=== PATIENT | female | born 1960 | race Caucasian/White ===

== ENCOUNTER 2020-10-27 13:52 | Inpatient (IN) | payer MEDICARE, MEDICAID ==
[~2020-10-27 13:52] MED LIST: Iopamidol-370 76% 500 ML 1 ML ONE
--- NOTE | 2020-10-27 15:02 | RAD ---
PORTABLE CHEST: 10/27/20 HISTORY: Cough. Heart size within normal limits. There are atherosclerotic changes of the aorta. The lungs are clear of infiltrate. No significant bony findings. IMPRESSION: No active intrathoracic disease. POS: OFF
[2020-10-27] MEDS ORDERED: Albuterol 200 PUFF (6.7GM INHALER) ONE (15:14)
[2020-10-27 15:35] LABS: Bilirubin Negative (Negative); Blood, Urine Negative (Negative); Clarity Clear (Clear); Glucose, Urine (Dipstick) Normal (Negative); Ketone, Urine 10 mg/dL (Negative); Leukocyte 25 Leu/uL (Negative); Nitrite Negative (Negative); Protein, Urine (Dipstick) 10 mg/dL (Neg-Trace); RBC/HPF 0-3 HPF (0-3); Urobilinogen Normal mg/dL (Less than 2)
[2020-10-27 15:36] LABS: Bacteria/HPF 1+ HPF (None Seen)
[2020-10-27] MEDS ORDERED: methylPREDNISolone Sod Succ/PF 125 MG/2 ML VIAL ONE (15:49)
[2020-10-27] MEDS ORDERED: Ondansetron PF 4 MG/2 ML Vial ONE (15:49)
[2020-10-27 16:02] LABS: #Lymphocytes 1.6 thou/uL (1.20-3.40); #Monocytes 0.8 thou/uL (0.11-0.59); #Neutrophils 12.7 thou/uL (1.40-6.50); %Basophils 0.2 % (0.0-1.0); %Eosinophils 0.2 % (0.0-10.0); %Lymphocytes 10.8 % (21.0-51.0); %Monocytes 5.1 % (0.0-10.0); %Neutrophils 83.8 % (42.0-75.0); Hemoglobin 17.3 g/dL (12.0-16.0); Mean Corpuscular HGB CONC 34.8 g/dL (32.0-36.0); Mean Corpuscular Hemoglobin 41.7 pg (27.0-31.0); Mean Platelet Volume 6.8 fL (7.4-10.4); Platelet Count 292 thou/uL (130-400); RBC Distribution Width 15.7 % (11.5-14.5); Red Blood Cell (RBC) Count 4.15 mill/uL (4.20-5.40); White Blood Cell (WBC) Count 15.1 thou/uL (4.8-10.8)
[2020-10-27 16:15] LABS: Anisocytosis SLIGHT = 6-15 cells (100X) (0-5/hpf); MDiff Complete? YES; Macrocytosis SLIGHT = 6-15 cells (100X) (0-5/hpf); Platelet Morphology Comment Appears Adequate
[2020-10-27 16:22] LABS: ALT (SGPT) 42 U/L (8-55); AST (SGOT) 46 U/L (5-34); Albumin 3.8 g/dL (3.5-5.0); Alkaline Phosphatase 111 U/L (40-110); Anion Gap 14 mmol/L (10-20); BUN (Urea Nitrogen) 7 mg/dL (9.8-20.1); Bilirubin, Total 2.5 mg/dL (0.2-1.2); Calc. Creatinine Clearance 0 mL/min (70-130); Calcium 8.9 mg/dL (7.8-10.44); Carbon Dioxide 27 mmol/L (22-29); Chloride 88 mmol/L (98-107); Globulin 3.9 g/dL (2.4-3.5); Glucose 105 mg/dL (70-105); Lipase 12 U/L (8-78); Potassium 4.6 mmol/L (3.5-5.1); Protein, Total 7.7 g/dL (6.0-8.3); Sodium 124 mmol/L (136-145)
--- NOTE | 2020-10-27 17:04 | CT ---
CTA Angio Chest W WO Con 10/27/2020 4:42 PM Indication: Shortness of breath and elevated d-dimer Technique: Multiple CTA images were obtained of the thorax with IV contrast. 3-D rendering: MIP matthew nstructed images were created and reviewed. Comparison: No relevant prior studies available. Findings: Pulmonary arteries: No central or segmental pulmonary embolus is evident. Heart and Aorta: There are coronary artery and thoracic aortic calcifications. The heart and great v essels appear otherwise within normal limits Mediastinum:Normal appearing. No enlarged lymph nodes. Lungs:There are areas of subsegmental volume loss within the lingula, right middle lobe and right low er lobe. No confluent airspace opacity is evident. Pleural space: Clear. Upper Abdomen: There is prominent fatty infiltration of the liver with a nodular contour. Osseous Structures: No acute fracture or subluxation demonstrated. There is scattered degenerative a nd osteoarthritic change present. Soft tissues:No abnormality. Other findings:None. Impression: No central or segmental pulmonary embolus.
[2020-10-27] MEDS ORDERED: Ketorolac Tromethamine 30 MG/ML VIAL ONE (17:56)
--- NOTE | 2020-10-27 17:56 | ULT ---
RIGHT UPPER QUADRANT ULTRASOUND CLINICAL HISTORY: Right upper quadrant pain. COMPARISON: None FINDINGS: Liver:There is diffuse fatty infiltration. Image detail is limited due to overlying bowel gas and the patient's body habitus Intrahepatic bile ducts: No intrahepatic or extrahepatic biliary dilation.; Common bile duct: Not visualized Gallbladder: Normal appearing. Adames's sign:None Main portal vein:Not well seen Pancreas:Not well seen Right kidney: Right kidney measures 9.9 x 4.6 x 5.1 cm. No focal renal lesion or hydronephrosis. Additional findings: None. IMPRESSION: Some limitations in exam. Diffuse fatty liver. Visualized gallbladder appear within normal limits.
[2020-10-27 19:00] LABS: SARS-CoV-2 NAA Rapid Test Not Detected (NotDetected)
[2020-10-27] MEDS ORDERED: Acetaminophen 325 MG TAB PO PRN (21:01)
[2020-10-27] MEDS ORDERED: hydrALAZINE 20 MG/ML VIAL SLOW IVP PRN (21:01)
[2020-10-27] MEDS ORDERED: Labetalol HCl 100 MG/20 ML VIAL SLOW IVP PRN (21:01)
[2020-10-27] MEDS ORDERED: cloNIDine 0.1 MG TAB PO PRN (21:01)
[2020-10-27] MEDS ORDERED: Guaifenesin DM 100-10/5 ML UDCUP PO PRN (21:01)
[2020-10-27] MEDS ORDERED: HYDROcodone/Acetaminophen 5/325 mg Tablet PO PRN (21:01)
[2020-10-27] MEDS ORDERED: Promethazine HCl 12.5 MG in Sodium Chloride 0.9% 50 ML IVPB PRN (21:08)
[2020-10-27] MEDS ORDERED: Ondansetron PF 4 MG/2 ML Vial IVP PRN (21:08)
[2020-10-27] MEDS ORDERED: Sodium Chloride 0.9% 500 ML IV SCH (21:15)
[2020-10-27] MEDS ORDERED: Electrolyte Replacement Protocol 1 EACH FS SCH (21:15)
--- NOTE | 2020-10-27 21:17 | PDOC.HHP ---
Hospitalist HPI Shortness of breath, nausea/vomiting/diarrhea History of Present Illness: Patient is a 60 year old female with PMH HTN, COPD who presents to ED for cough. Patient reports COPD and daily cough, last 3 days was worse than usual, patient fell yesterday no LOC did not hit head. Normally uses inhaler and used twice today. She also reports vomiting and now has rib pain secondary to coughing and vomiting. She has also had a few episodes of diarrhea and decreased PO intake. Oxygen saturation per EMS prior to arrival was 93% on room air. Patient does not wear supplemental home oxygen. recieved 2 inhaled albuterol doses. in ED, CXR clear, WBC 15.1, CTA chest performed and no PE observed. Na 124, nephrology consulted from ED, recommended fluid restriction and will see patient with us in AM. Patient admitted for further workup and care. Allergies/Adverse Reactions: Allergy/AdvReac Type Severity Reaction Status Date / Time No Known Drug Allergies Allergy Unverified 10/27/20 21:23 Comments: lisinopril MonOct 27, 2020 14:07 PRABHA Diaz Madisen tablet : Strength - 40 mg : ORAL Patient Dose: 40 mg Oral once a day. metoprolol tartrate oral MonOct 27, 2020 14:07 PRABHA Diaz Madisen tablet : Strength - 25 mg : ORAL Patient Dose: 25 mg Oral once a day. PROzac MonOct 27, 2020 14:08 PRABHA Diaz Madisen capsule : Strength - 40 mg : ORAL Patient Dose: 40 mg Oral once a day. albuterol MonOct 27, 2020 14:08 PRABHA Diaz Madisen aerosol : Strength - 90 mcg : INHALATION Patient Dose: unk mg Oral 4 times a day. Breo Ellipta MonOct 27, 2020 14:09 PRABHA Diaz Madisen blister with device : Strength - 100 mcg-25 mcg/dose : INHALATION Patient Dose: unk mg Inhaler once a day. temazepam MonOct 27, 2020 14:09 PRABHA Diaz Madisen capsule : Strength - 30 mg : ORAL Patient Dose: 30 mg Oral once a day (at bedtime). Past History: PMH: COPD, HTN PSH: tubal ligation social history: uses tobacco. denies alcohol, drug use. Hospitalist HPI ROS Constitutional: denies: fever, chills, sweats, weakness, malaise, other Eyes: denies: pain, vision change, conjunctivae inflammation, eyelid inflammation, redness, other ENT: denies: ear pain, ear discharge, nose pain, nose discharge, nose congestion, mouth pain, mouth swelling, throat pain, throat swelling, other Respiratory: reports: cough, wheezing. denies: dry, shortness of breath, hemoptysis, SOB with excertion, pleuritic pain, sputum, other Cardiovascular: denies: chest pain, palpitations, orthopnea, paroxysmal noc. dyspnea, edema, light headedness, other Gastrointestinal: reports: nausea, vomiting, abdominal pain, diarrhea. denies: constipation, melena, hematochezia, other Genitourinary: denies: dysuria, frequency, incontinence, hematuria, retention, other Musculoskeletal: denies: neck pain, shoulder pain, arm pain, back pain, hand pain, leg pain, foot pain, other Skin: denies: rash, lesions, taurus, bruising, other Neurological: denies: weakness, numbness, incoordination, change in speech, confusion, seizures, other All other systems reviewed; all pertinent +/- noted in HPI/Subj Hospitalist Exam Vitals: VITAL SIGNS MonOct 27, 2020 19:00 PRABHA Guerra Brandi BP: 128/97 Pulse: 79 Resp: 22 Pain: 4 O2 sat: 97 on (2L Oxygen) Time: 10/27/2020 19:00. General Appearance: NAD, awake alert Eye: PERRL, anicteric sclera ENT: normocephalic atraumatic, no oropharyngeal lesions, moist mucosa Neck: supple, symmetric, no JVD, no thyromegaly, no lymphadenopathy, no carotid bruit Heart: RRR, no murmur, no gallops, no rubs, normal peripheral pulses Respiratory: CTAB, no wheezes, no rales, no ronchi, normal chest expansion, no tachypnea, normal percussion Gastrointestinal: soft, non-tender, non-distended, normal bowel sounds, no palpable masses, no hepatomegaly, no splenomegaly, no bruit Extremities: no cyanosis, no clubbing, no edema Skin: normal turgor, no lesions, no rashes Neurological: cranial nerve grossly intact, normal sensation to touch, no weakness, no focal deficits, no new deficit Musculoskeletal: normal tone, normal strength, no muscle wasting Psychiatric: normal affect, normal behavior, A&O x 3 Hospitalist Results Result Diagrams: 10/27/20 15:39 10/27/20 15:39 Lab results: Laboratory Last Values WBC 15.1 thou/uL (4.8-10.8) H 10/27/20 15:39 RBC 4.15 mill/uL (4.20-5.40) L 10/27/20 15:39 Hgb 17.3 g/dL (12.0-16.0) H 10/27/20 15:39 Hct 49.6 % (36.0-47.0) H 10/27/20 15:39 MCV 120.0 fL (78.0-98.0) H 10/27/20 15:39 MCH 41.7 pg (27.0-31.0) H 10/27/20 15:39 MCHC 34.8 g/dL (32.0-36.0) 10/27/20 15:39 RDW 15.7 % (11.5-14.5) H 10/27/20 15:39 Plt Count 292 thou/uL (130-400) 10/27/20 15:39 MPV 6.8 fL (7.4-10.4) L 10/27/20 15:39 Neutrophils % 83.8 % (42.0-75.0) H 10/27/20 15:39 Neutrophils % (Manual) Not Reportable 10/27/20 15:39 Lymphocytes % 10.8 % (21.0-51.0) L 10/27/20 15:39 Monocytes % 5.1 % (0.0-10.0) 10/27/20 15:39 Eosinophils % 0.2 % (0.0-10.0) 10/27/20 15:39 Basophils % 0.2 % (0.0-1.0) 10/27/20 15:39 Neutrophils # 12.7 thou/uL (1.40-6.50) H 10/27/20 15:39 Lymphocytes # 1.6 thou/uL (1.20-3.40) 10/27/20 15:39 Monocytes # 0.8 thou/uL (0.11-0.59) H 10/27/20 15:39 Eosinophils # 0.0 thou/uL (0.0-0.7) 10/27/20 15:39 Basophils # 0.0 thou/uL (0.0-0.2) 10/27/20 15:39 Plt Morphology Comment Appears Adequate 10/27/20 15:39 Anisocytosis SLIGHT = 6-15 cells (100X) (0-5/hpf) 10/27/20 15:39 Macrocytosis SLIGHT = 6-15 cells (100X) (0-5/hpf) 10/27/20 15:39 D-Dimer 0.87 *mcg/mL (0.27-0.43) H 10/27/20 15:39 Sodium 124 mmol/L (136-145) L 10/27/20 15:39 Potassium 4.6 mmol/L (3.5-5.1) 10/27/20 15:39 Chloride 88 mmol/L (98-107) L 10/27/20 15:39 Carbon Dioxide 27 mmol/L (22-29) 10/27/20 15:39 Anion Gap 14 mmol/L (10-20) 10/27/20 15:39 BUN 7 mg/dL (9.8-20.1) L 10/27/20 15:39 Creatinine 0.64 mg/dL (0.6-1.1) 10/27/20 15:39 Estimated GFR (MDRD) Greater than 90 10/27/20 15:39 Glucose 105 mg/dL (70-105) 10/27/20 15:39 Serum Osmolality 261 mOsm/kg (280-295) L 10/27/20 18:44 Calcium 8.9 mg/dL (7.8-10.44) 10/27/20 15:39 Total Bilirubin 2.5 mg/dL (0.2-1.2) H 10/27/20 15:39 AST 46 U/L (5-34) H 10/27/20 15:39 ALT 42 U/L (8-55) 10/27/20 15:39 Alkaline Phosphatase 111 U/L (40-110) H 10/27/20 15:39 Troponin I 0.010 ng/mL (< 0.028) 10/27/20 18:44 Serum Total Protein 7.7 g/dL (6.0-8.3) 10/27/20 15:39 Albumin 3.8 g/dL (3.5-5.0) 10/27/20 15:39 Globulin 3.9 g/dL (2.4-3.5) H 10/27/20 15:39 Albumin/Globulin Ratio 1.0 g/dL (1.2-2.2) L 10/27/20 15:39 Lipase 12 U/L (8-78) 10/27/20 15:39 Urine Color Light-Conger (Yellow) 10/27/20 14:48 Urine Clarity Clear (Clear) 10/27/20 14:48 Urine pH 8.0 (5.0-9.0) 10/27/20 14:48 Ur Specific [place] 1.020 (1.002-1.036) 10/27/20 14:48 Urine Protein 10 mg/dL (Neg-Trace) 10/27/20 14:48 Urine Glucose (UA) Normal mg/dL (Negative) 10/27/20 14:48 Urine Ketones 10 mg/dL (Negative) A 10/27/20 14:48 Urine Blood Negative (Negative) 10/27/20 14:48 Urine Nitrite Negative (Negative) 10/27/20 14:48 Urine Bilirubin Negative (Negative) 10/27/20 14:48 Urine Urobilinogen Normal mg/dL (Less than 2) 10/27/20 14:48 Ur Leukocyte Esterase 25 Genna/uL (Negative) A 10/27/20 14:48 Urine RBC 0-3 HPF (0-3) 10/27/20 14:48 Urine WBC 7-10 HPF (0-3) A 10/27/20 14:48 Ur Squamous Epith Cells 4-6 HPF (0-3) A 10/27/20 14:48 Urine Bacteria 1+ HPF (None Seen) A 10/27/20 14:48 Urine Osmolality 548 mOsm/kg (300-900) 10/27/20 14:48 Urine Sodium 30 mmol/L (Not Available) 10/27/20 14:48 Influenza A RNA INAAT Not Detected (NotDetected) 10/27/20 17:47 Influenza B RNA INAAT Not Detected (NotDetected) 10/27/20 17:47 SARS-CoV-2 Rap RNA(RT-PCR) Not Detected (NotDetected) 10/27/20 17:47 Additional comment: RADIOLOGY MonOct 27, 2020 15:41 Juan Hui NP, [place] XR Chest 1 View Portable Observe DT: MonOct 27, 2020 14:26 IMPRESSION: No active intrathoracic disease. EKG INTERPRETATION MonOct 27, 2020 14:18 DO [place] 12 LEAD EKG INTERPRETATION 12 lead EKG interpreted by Emergency Department Physician at time of study Normal sinus rhythm, rate 76. Normal axis and intervals. No ST or T wave changes. Normal tracing. independantly reviewed and agree with ED labs, imaging reports, ED documents reviewed Hospitalist H&P A/P Plan: Patient is a 60 year old female with PMH HTN, COPD who presents to ED for cough. # COPD exacerbation Patient reports COPD and daily cough, last 3 days was worse than usual, patient fell yesterday no LOC did not hit head. Normally uses inhaler and used twice today. She also reports vomiting and now has rib pain secondary to coughing and vomiting. She has also had a few episodes of diarrhea and decreased PO intake. Oxygen saturation per EMS prior to arrival was 93% on room air. Patient does not wear supplemental home oxygen. recieved 2 inhaled albuterol doses. in ED, CXR clear, WBC 15.1, CTA chest performed and no PE observed. Na 124, nephrology consulted from ED, recommended fluid restriction and will see patient with us in AM. Patient admitted for further workup and care. - empiric steroids, neb treatments, IV steroids started, antibiotics, dulera, vresume home medications once med rec complete # nausea, vomiting, diarrhea - suspect viral gastroenteritis, hopefully self limited # hyponatremia - nephrology consulted by ED, appreciate assistance, SIADH workup sent by Ed as nephrology recommended, 800cc fluid restriction # leukocytosis - suspect due to COPD exacerbation, treat as above # UTI - ceftriaxone, urine culture # leukocytosis - suspect due to infection, treat as above # fall - PT/OT consult ordered, no head trauma or LOC # DVT/GI ppx
[2020-10-27 22:19] LABS: Troponin I 0.015 ng/mL (< 0.028)
[2020-10-28] MEDS: Melatonin 3 MG TAB PO PRN (01:13)
[2020-10-28] MEDS ORDERED: Temazepam 15 MG CAP PO PRN (01:27)
[2020-10-28] MEDS: Azithromycin 500 MG in Sodium Chloride 0.9% 250 ML 250 ML IVPB SCH ×2 (02:06→21:31)
[2020-10-28] MEDS ORDERED: Azithromycin 500 MG VIAL ONE (02:06)
[2020-10-28 04:21] VITALS: BMI 36.7
[2020-10-28 05:08] LABS: #Lymphocytes 0.7 thou/uL (1.20-3.40); #Monocytes 0.2 thou/uL (0.11-0.59); #Neutrophils 9.5 thou/uL (1.40-6.50); %Eosinophils 0.1 % (0.0-10.0); %Lymphocytes 6.7 % (21.0-51.0); %Monocytes 1.7 % (0.0-10.0); %Neutrophils 91.5 % (42.0-75.0); Hemoglobin 15.5 g/dL (12.0-16.0); Mean Corpuscular HGB CONC 34.7 g/dL (32.0-36.0); Platelet Count 250 thou/uL (130-400); RBC Distribution Width 15.2 % (11.5-14.5); Red Blood Cell (RBC) Count 3.77 mill/uL (4.20-5.40); White Blood Cell (WBC) Count 10.4 thou/uL (4.8-10.8)
[2020-10-28 05:10] LABS: Anion Gap 14 mmol/L (10-20); BUN (Urea Nitrogen) 11 mg/dL (9.8-20.1); Calc. Creatinine Clearance 147 mL/min (70-130); Calcium 8.2 mg/dL (7.8-10.44); Carbon Dioxide 23 mmol/L (22-29); Chloride 91 mmol/L (98-107); Glucose 155 mg/dL (70-105); Magnesium 1.6 mg/dL (1.6-2.6); Potassium 4.8 mmol/L (3.5-5.1); Sodium 123 mmol/L (136-145)
[2020-10-28] MEDS ORDERED: Mometasone 100 MCG/Formoterol 5 MCG 120 PUFF INHALER INH SCH (06:30)
[2020-10-28] MEDS ORDERED: Magnesium 2 GM/50 ML 2 GM in Premix Bag 1 BAG IVPB SCH (06:30)
[2020-10-28] MEDS: methylPREDNISolone Sod Succ 40 MG VIAL IVP SCH ×2 (06:37→13:36)
[2020-10-28] MEDS ORDERED: Non-Formulary Item 1 EACH (Ventolin Hfa Inhaler [Ventolin Hfa Inhaler] 60 PUFF Aer) INH PRN (07:44)
[2020-10-28] MEDS ORDERED: Non-Formulary Item 1 EACH (Temazepam [Temazepam] 30 MG Capsule) PO PRN (07:44)
--- NOTE | 2020-10-28 08:03 | PDOC.HOSPP ---
- Subjective Encounter Date: 10/28/20 Encounter Time: 08:01 Subjective: admitted with cough, sob. RA O2 sat> 95 in ED - Objective Vital Signs & Weight: Vital Signs (12 hours) Temp Pulse Resp BP Pulse Ox 10/28/20 07:24 81 12 10/28/20 04:05 97.9 F 79 20 153/80 H 98 10/28/20 02:03 98.4 F 82 18 156/87 H 94 L 10/27/20 21:01 98.4 F 81 21 H 141/63 H 99 Weight Weight 213 lb 13.574 oz Result Diagrams: 10/28/20 04:34 10/28/20 04:34 Hospitalist ROS - Medication Medications: Active Medications Generic Name Dose Route Start Last Admin Trade Name Freq PRN Reason Stop Dose Admin Albuterol/Ipratropium 3 ml 10/28/20 07:00 10/28/20 07:24 Ipratropium/Albuterol Sulfate 3 Ml Neb NEB 3 ml [id number] DEION Administration Azithromycin 500 mg/ Sodium 250 mls @ 250 mls/hr 10/27/20 21:30 10/28/20 02:06 Chloride IVPB 250 mls Q24HR DEION Administration Magnesium Sulfate 2 gm/ Device 50 mls @ 50 mls/hr 10/28/20 06:30 10/28/20 06:37 IVPB 10/28/20 10:00 50 mls NOW DEION Administration Melatonin 6 mg 10/27/20 22:59 10/28/20 01:13 Melatonin 3 Mg Tab PO 6 mg HS PRN Administration Insomnia Methylprednisolone Sodium Succinate 60 mg 10/28/20 06:00 10/28/20 06:37 Methylprednisolone Sod Succ 40 Mg Vial IVP 60 mg Q8HR DEION Administration Mometasone Furoate/Formoterol Fumar 1 puff 10/28/20 06:30 10/28/20 07:18 Mometasone 100 Mcg/Formoterol 5 Mcg 120 Puff Inhaler INH 1 puff BID-RT DEION Administration Temazepam 30 mg 10/28/20 01:27 10/28/20 03:17 Temazepam 15 Mg Cap PO 30 mg HSPRN PRN Administration Insomnia Hospitalist Exam Vitals: Vital Signs (12 hours) Temp Pulse Resp BP Pulse Ox 10/28/20 07:24 81 12 10/28/20 04:05 97.9 F 79 20 153/80 H 98 10/28/20 02:03 98.4 F 82 18 156/87 H 94 L 10/27/20 21:01 98.4 F 81 21 H 141/63 H 99 Weight Weight 213 lb 13.574 oz General Appearance: awake alert Neck: no JVD Heart: RRR, no murmur Respiratory: CTAB Gastrointestinal: soft, normal bowel sounds Extremities: no edema Hosp A/P (1) COPD (chronic obstructive pulmonary disease) Status: Acute (2) Hyponatremia Code(s): E87.1 - HYPO-OSMOLALITY AND HYPONATREMIA Status: Acute (3) PTSD (post-traumatic stress disorder) Code(s): F43.10 - POST-TRAUMATIC STRESS DISORDER, UNSPECIFIED Status: Acute (4) Nausea & vomiting Code(s): R11.2 - NAUSEA WITH VOMITING, UNSPECIFIED Status: Acute Qualifiers: Vomiting Intractability: unspecified (5) Pyuria Code(s): R82.81 - PYURIA Status: Acute - Plan DC O2, monitor sats suspect hyponatremia due to prozac, urine lytes, osmolality pending monitor cultures etc
[2020-10-28] MEDS: Famotidine 20 MG TAB PO SCH ×2 (08:25→20:34)
[2020-10-28] MEDS: Polyethylene Glycol 3350 17 GM Packet PO SCH (08:31)
[2020-10-28] MEDS ORDERED: Albuterol 200 PUFF (6.7GM INHALER) INH PRN (08:54)
[2020-10-28] MEDS ORDERED: FLUoxetine HCl 20 MG CAP PO SCH (09:00)
[2020-10-28] MEDS ORDERED: Non-Formulary Item 1 EACH (Lisinopril [Lisinopril] 40 MG Tablet) PO SCH (09:00)
[2020-10-28] MEDS ORDERED: Non-Formulary Item 1 EACH (Fluoxetine Hcl [Prozac] 40 MG Capsule) PO SCH (09:00)
[2020-10-28] MEDS ORDERED: Non-Formulary Item 1 EACH (Fluticasone/Vilanterol [Breo Ellipta 200-25 Mcg Inh] 1 EACH Bl IH SCH (09:00)
--- NOTE | 2020-10-28 10:26 | CON ---
DATE OF CONSULTATION: Nephrology consult. REASON FOR CONSULTATION: Hyponatremia. HISTORY OF PRESENTING ILLNESS: This is a 60-year-old female who presented to the hospital yesterday for nausea, vomiting, or diarrhea. The patient was noted to have a sodium of 124, so I was consulted. The patient had a high urine osmolality and a low serum osmolality. The patient denies drinking excessively, but is on Prozac. PAST MEDICAL HISTORY: Significant for hypertension, COPD, depression, tubal ligation. SOCIOECONOMIC HISTORY: No alcohol or drug use. FAMILY HISTORY: Negative for ESRD. ALLERGIES: REVIEWED. MEDICATIONS: Home medications list reviewed. Hospital medications reviewed. REVIEW OF SYSTEMS: A 15-point review of system was performed and negative except for positives noted above. HEENT: Eyes intact, no diplopia. Ears: No hearing loss or earache. Nose: No discharge or bleeding. Chest: No cough or phlegm. Abdomen: No nausea or vomiting. Genitourinary: No hematuria. No Fletcher catheter. Musculoskeletal: No low back pain. No joint swelling or pain. Neurological: No syncope. No seizures. Skin: No complaints of rash or itching. Psychiatric: No depression. Constitutional: No weight loss or loss of appetite. PHYSICAL EXAMINATION: GENERAL: The patient is awake, alert. VITAL SIGNS: Pulse 79, breathing 16, blood pressure 141/60. HEENT: Head normocephalic and atraumatic. Eyes intact, no ulcers. Nose intact, no ulcers. Ears intact, no ulcers. Neck: Supple. No JVD. Chest: Symmetrical and clear. Cardiovascular: Shows S1 and S2, no rub, no murmur. Gastrointestinal: Abdomen is soft, bowel sounds positive. Extremities: Show no edema or ulcers. Skin: Shows no rash or petechiae. Musculoskeletal: Shows no joint swelling or stiffness. Genitourinary: Shows no Fletcher or CVA tenderness. Neurologic: Motor intact. Cranial nerves intact. LABORATORY DATA: Show sodium 123. ASSESSMENT/RECOMMENDATION: 1. 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 Medication, recommend 800 mL fluid restriction. Agree with Dr. Mancera on stopping Prozac and changing to . 2. Hypertension, stable. 3. Chronic kidney disease, stage 1, stable. 4. No indication for hypertonic saline. 5. We would recommend checking sodium 3-4 times daily. All the above findings were discussed with the patient. All questions were answered. Job ID: [id number]
[2020-10-28 10:57] LABS: Potassium, Urine 77.7 mmol/L; Sodium, Urine Less than 20 mmol/L (Not Available)
[2020-10-28 11:01] LABS: Cocaine Metabolite Screen Not Detected (NotDetected); Medtox Reader # READER 4; Phencyclidine (PCP) Not Detected (NotDetected); THC/Cannabinoid Screen Not Detected (NotDetected)
[2020-10-28 11:02] LABS: Amphetamine Not Detected (NotDetected); Barbiturates Screen Not Detected (NotDetected); Benzodiazepine Screen Detected (NotDetected); Medtox Control Line Valid? VALID (VALID); Methadone Not Detected (NotDetected); Methamphetamine Not Detected (NotDetected); Opiate Screen Not Detected (NotDetected); Oxycodone Screen Not Detected (NotDetected); Tricyclic Screen Not Detected (NotDetected)
[2020-10-28 11:50] LABS: Anion Gap 14 mmol/L (10-20); BUN (Urea Nitrogen) 10 mg/dL (9.8-20.1); Calc. Creatinine Clearance 147 mL/min (70-130); Calcium 8.2 mg/dL (7.8-10.44); Carbon Dioxide 20 mmol/L (22-29); Chloride 92 mmol/L (98-107); Glucose 232 mg/dL (70-105); Potassium 4.4 mmol/L (3.5-5.1); Sodium 122 mmol/L (136-145)
[2020-10-28] MEDS: Lisinopril 20 MG TAB PO SCH (12:56)
[2020-10-28] MEDS: Mometasone 100 MCG/Formoterol 5 MCG 120 PUFF INHALER INH SCH (18:44)
[2020-10-28 20:05] LABS: Anion Gap 17 mmol/L (10-20); BUN (Urea Nitrogen) 11 mg/dL (9.8-20.1); Calc. Creatinine Clearance 124 mL/min (70-130); Calcium 8.4 mg/dL (7.8-10.44); Carbon Dioxide 22 mmol/L (22-29); Chloride 94 mmol/L (98-107); Glucose 235 mg/dL (70-105); Potassium 4.8 mmol/L (3.5-5.1); Sodium 128 mmol/L (136-145)
[2020-10-28] MEDS: Enoxaparin Sodium 40 MG/0.4 ML SYRINGE SC SCH (20:34)
[2020-10-28] MEDS ORDERED: cefTRIAXone\\ROCEPHIN 1 GM in Sodium Chloride 0.9% 100 ML IVPB SCH (21:00)
[2020-10-29 00:13] LABS: Anion Gap 11 mmol/L (10-20); BUN (Urea Nitrogen) 14 mg/dL (9.8-20.1); Calc. Creatinine Clearance 138 mL/min (70-130); Carbon Dioxide 26 mmol/L (22-29); Chloride 96 mmol/L (98-107); Glucose 152 mg/dL (70-105); Potassium 4.6 mmol/L (3.5-5.1); Sodium 128 mmol/L (136-145)
[2020-10-29] MEDS ORDERED: ALPRAZolam 0.25 MG TAB PO SCH (02:30)
[2020-10-29 02:56] LABS: Hemoglobin 16.9 g/dL (12.0-16.0); Mean Corpuscular Hemoglobin 40.3 pg (27.0-31.0); Mean Platelet Volume 6.9 fL (7.4-10.4); Platelet Count 311 thou/uL (130-400); RBC Distribution Width 15.4 % (11.5-14.5); Red Blood Cell (RBC) Count 4.19 mill/uL (4.20-5.40); White Blood Cell (WBC) Count 18.1 thou/uL (4.8-10.8)
[2020-10-29 03:00] LABS: ALT (SGPT) 33 U/L (8-55); AST (SGOT) 27 U/L (5-34); Albumin 3.6 g/dL (3.5-5.0); Alkaline Phosphatase 109 U/L (40-110); Anion Gap 14 mmol/L (10-20); BUN (Urea Nitrogen) 12 mg/dL (9.8-20.1); Calc. Creatinine Clearance 136 mL/min (70-130); Calcium 8.7 mg/dL (7.8-10.44); Carbon Dioxide 25 mmol/L (22-29); Chloride 96 mmol/L (98-107); Globulin 3.7 g/dL (2.4-3.5); Glucose 136 mg/dL (70-105); Magnesium 2.1 mg/dL (1.6-2.6); Potassium 4.8 mmol/L (3.5-5.1); Protein, Total 7.3 g/dL (6.0-8.3); Sodium 130 mmol/L (136-145)
[2020-10-29 03:19] LABS: Band 2 % (5-11); Lymphocytes 2 % (21-51); MDiff Complete? YES; Macrocytosis SLIGHT = 6-15 cells (100X) (0-5/hpf); Monocytes 23 % (0-10); Neutrophil 73 % (42-75); Platelet Morphology Comment Appears Adequate
[2020-10-29] MEDS: Famotidine 20 MG TAB PO SCH ×2 (07:33→19:58)
[2020-10-29] MEDS: ALPRAZolam 0.25 MG TAB PO PRN ×2 (07:33→19:58)
[2020-10-29] MEDS: Polyethylene Glycol 3350 17 GM Packet PO SCH (07:35)
[2020-10-29] MEDS: Lisinopril 20 MG TAB PO SCH (07:35)
[2020-10-29] MEDS: Mometasone 100 MCG/Formoterol 5 MCG 120 PUFF INHALER INH SCH ×2 (08:17→20:52)
[2020-10-29 08:59] LABS: Anion Gap 15 mmol/L (10-20); BUN (Urea Nitrogen) 12 mg/dL (9.8-20.1); Calc. Creatinine Clearance 147 mL/min (70-130); Calcium 8.4 mg/dL (7.8-10.44); Carbon Dioxide 19 mmol/L (22-29); Chloride 100 mmol/L (98-107); Glucose 129 mg/dL (70-105); Potassium 4.4 mmol/L (3.5-5.1); Sodium 130 mmol/L (136-145)
--- NOTE | 2020-10-29 11:50 | PRG ---
DATE OF SERVICE: 10/29/2020 SUBJECTIVE: A 60-year-old female being seen for hyponatremia. The patient denied nausea, vomiting, or chest pain. PHYSICAL EXAMINATION: General: The patient is awake and alert. Vital Signs: Afebrile, pulse 75, breathing at 16, blood pressure 136/88. HEENT: Head normocephalic and atraumatic. Eyes intact, no ulcers. Nose intact, no ulcers. Ears intact, no ulcers. Neck: Supple. No JVD. Chest: Symmetrical and clear. Cardiovascular: Shows S1 and S2, no rub, no murmur. Gastrointestinal: Abdomen is soft, bowel sounds positive. Extremities: Show no edema or ulcers. Skin: Shows no rash or petechiae. Musculoskeletal: Shows no joint swelling or stiffness. Genitourinary: Shows no Fletcher or CVA tenderness. Neurologic: Motor intact. Cranial nerves intact. LABORATORY DATA: Reviewed. Sodium 130. ASSESSMENT AND PLAN: Hyponatremia, resolved fluid restriction. Advised the patient to not drink more than two quarts per day. The patient should follow up with Nephrology as outpatient. I will sign off. Please reconsult as needed. Job ID: [id number]
--- NOTE | 2020-10-29 12:08 | PDOC.HOSPP ---
- Subjective Encounter Date: 10/29/20 Encounter Time: 12:07 Subjective: had panic atacck last nite - Objective Vital Signs & Weight: Vital Signs (12 hours) Temp Pulse Resp BP BP BP Pulse Ox 10/29/20 08:15 76 15 10/29/20 08:00 97.9 F 80 18 136/88 93 L 10/29/20 07:39 98.1 F 83 18 135/88 93 L 10/29/20 07:35 135/88 10/29/20 05:22 98.1 F 84 18 116/80 96 10/29/20 02:10 108 H 163/117 H 97 10/29/20 02:05 97.7 F 97 24 H 158/110 H 96 Weight Admit Weight 213 lb 13.574 oz Weight 213 lb 13.574 oz I&O: 10/28/20 10/29/20 10/30/20 06:59 06:59 06:59 Intake Total 1330 Output Total 401 Balance 929 Result Diagrams: 10/29/20 02:27 10/29/20 06:02 Hospitalist ROS - Medication Medications: Active Medications Generic Name Dose Route Start Last Admin Trade Name Freq PRN Reason Stop Dose Admin Acetaminophen 650 mg 10/27/20 21:01 10/28/20 19:03 Acetaminophen 325 Mg Tab PO 650 mg Q4H PRN Administration Headache/Fever/Mild Pain (1-3) Albuterol/Ipratropium 3 ml 10/28/20 07:00 10/29/20 08:15 Ipratropium/Albuterol Sulfate 3 Ml Neb NEB 3 ml [id number] [id number] Administration Alprazolam 0.25 mg 10/29/20 02:39 10/29/20 07:33 Alprazolam 0.25 Mg Tab PO 0.25 mg TIDPRN PRN Administration Anxiety Enoxaparin Sodium 40 mg 10/28/20 21:00 10/28/20 20:34 Enoxaparin Sodium 40 Mg/0.4 Ml Syringe SC 40 mg 2100 DEION Administration Famotidine 20 mg 10/28/20 09:00 10/29/20 07:33 Famotidine 20 Mg Tab PO 20 mg BID DEION Administration Promethazine HCl 12.5 mg/ 50.5 mls @ 202 mls/hr 10/27/20 21:08 10/28/20 16:06 Sodium Chloride IVPB 50.5 mls Q6H PRN Administration Nausea/vomiting use second Lisinopril 40 mg 10/28/20 09:00 10/29/20 07:35 Lisinopril 20 Mg Tab PO 40 mg DAILY DEION Administration Melatonin 6 mg 10/27/20 22:59 10/28/20 01:13 Melatonin 3 Mg Tab PO 6 mg HS PRN Administration Insomnia Metoprolol Succinate 25 mg 10/28/20 09:00 10/29/20 07:35 Metoprolol Succinate Xl 25 Mg Tab PO 25 mg DAILY DEION Administration Mometasone Furoate/Formoterol Fumar 1 puff 10/28/20 18:30 10/29/20 08:17 Mometasone 100 Mcg/Formoterol 5 Mcg 120 Puff Inhaler INH 1 puff BID-RT DEION Administration Ondansetron HCl 4 mg 10/27/20 21:08 10/28/20 12:42 Ondansetron Pf 4 Mg/2 Ml Vial IVP 4 mg Q6H PRN Administration Nausea/Vomiting use 1st Polyethylene Glycol 17 gm 10/28/20 09:00 10/29/20 07:35 Polyethylene Glycol 3350 17 Gm Packet PO Not Given DAILY DEION Sodium Chloride 10 ml 10/28/20 09:00 10/29/20 07:36 Flush - Normal Saline 10 Ml Syringe IVF 10 ml Q12HR DEION Administration Hospitalist Exam Vitals: Vital Signs (12 hours) Temp Pulse Resp BP BP BP Pulse Ox 10/29/20 08:15 76 15 10/29/20 08:00 97.9 F 80 18 136/88 93 L 10/29/20 07:39 98.1 F 83 18 135/88 93 L 10/29/20 07:35 135/88 10/29/20 05:22 98.1 F 84 18 116/80 96 10/29/20 02:10 108 H 163/117 H 97 10/29/20 02:05 97.7 F 97 24 H 158/110 H 96 Weight Admit Weight 213 lb 13.574 oz Weight 213 lb 13.574 oz General Appearance: awake alert Neck: no JVD Heart: RRR, no murmur Respiratory - other findings: scattered post rales Extremities: no edema Hosp A/P (1) COPD (chronic obstructive pulmonary disease) Status: Acute Qualifiers: Emphysema type: unspecified (2) Hyponatremia Code(s): E87.1 - HYPO-OSMOLALITY AND HYPONATREMIA Status: Acute (3) PTSD (post-traumatic stress disorder) Code(s): F43.10 - POST-TRAUMATIC STRESS DISORDER, UNSPECIFIED Status: Acute (4) Nausea & vomiting Code(s): R11.2 - NAUSEA WITH VOMITING, UNSPECIFIED Status: Resolved Qualifiers: Vomiting Intractability: unspecified (5) Pyuria Code(s): R82.81 - PYURIA Status: Acute (6) UTI (urinary tract infection) Status: Acute Qualifiers: Urinary tract infection type: acute cystitis Hematuria presence: without hematuria Qualified Code(s): N30.00 - Acute cystitis without hematuria (7) Leukocytosis Code(s): D72.829 - ELEVATED WHITE BLOOD CELL COUNT, UNSPECIFIED Status: Acute Qualifiers: Leukocytosis type: unspecified Qualified Code(s): D72.829 - Elevated white blood cell count, unspecified (8) Hypotension Status: Acute Qualifiers: Hypotension type: unspecified hypotension type Qualified Code(s): I95.9 - Hypotension, unspecified - Plan hypotension-asymptomatic. bolus NS leukocytosis-blood C&S, RPT cxr suspect hyponatremia due to prozac, urine lytes, osmolality pending monitor cultures. urine C&S E coli etc
[2020-10-29] MEDS ORDERED: Sodium Chloride 0.9% 1,000 ML IV SCH (12:15)
--- NOTE | 2020-10-29 13:41 | PDOC.HOSPP ---
- Subjective Encounter Date: 10/29/20 Encounter Time: 13:37 Subjective: lightheaded, - Objective Vital Signs & Weight: Vital Signs (12 hours) Temp Pulse Resp BP BP BP Pulse Ox 10/29/20 12:00 98.0 F 76 20 94 L 10/29/20 08:15 76 15 10/29/20 08:00 97.9 F 80 18 136/88 93 L 10/29/20 07:39 98.1 F 83 18 135/88 93 L 10/29/20 07:35 135/88 10/29/20 05:22 98.1 F 84 18 116/80 96 10/29/20 02:10 108 H 163/117 H 97 10/29/20 02:05 97.7 F 97 24 H 158/110 H 96 Weight Admit Weight 213 lb 13.574 oz Weight 213 lb 13.574 oz I&O: 10/28/20 10/29/20 10/30/20 06:59 06:59 06:59 Intake Total 1330 Output Total 401 Balance 929 Result Diagrams: 10/29/20 02:27 10/29/20 06:02 Hospitalist ROS - Medication Medications: Active Medications Generic Name Dose Route Start Last Admin Trade Name Freq PRN Reason Stop Dose Admin Acetaminophen 650 mg 10/27/20 21:01 10/28/20 19:03 Acetaminophen 325 Mg Tab PO 650 mg Q4H PRN Administration Headache/Fever/Mild Pain (1-3) Albuterol/Ipratropium 3 ml 10/28/20 07:00 10/29/20 08:15 Ipratropium/Albuterol Sulfate 3 Ml Neb NEB 3 ml [id number] DEION Administration Alprazolam 0.25 mg 10/29/20 02:39 10/29/20 07:33 Alprazolam 0.25 Mg Tab PO 0.25 mg TIDPRN PRN Administration Anxiety Enoxaparin Sodium 40 mg 10/28/20 21:00 10/28/20 20:34 Enoxaparin Sodium 40 Mg/0.4 Ml Syringe SC 40 mg 2100 DEION Administration Famotidine 20 mg 10/28/20 09:00 10/29/20 07:33 Famotidine 20 Mg Tab PO 20 mg BID DEION Administration Promethazine HCl 12.5 mg/ 50.5 mls @ 202 mls/hr 10/27/20 21:08 10/28/20 16:06 Sodium Chloride IVPB 50.5 mls Q6H PRN Administration Nausea/vomiting use second Lisinopril 40 mg 10/28/20 09:00 10/29/20 07:35 Lisinopril 20 Mg Tab PO 40 mg DAILY DEION Administration Melatonin 6 mg 10/27/20 22:59 10/28/20 01:13 Melatonin 3 Mg Tab PO 6 mg HS PRN Administration Insomnia Metoprolol Succinate 25 mg 10/28/20 09:00 10/29/20 07:35 Metoprolol Succinate Xl 25 Mg Tab PO 25 mg DAILY DEION Administration Mometasone Furoate/Formoterol Fumar 1 puff 10/28/20 18:30 10/29/20 08:17 Mometasone 100 Mcg/Formoterol 5 Mcg 120 Puff Inhaler INH 1 puff BID-RT DEION Administration Ondansetron HCl 4 mg 10/27/20 21:08 10/28/20 12:42 Ondansetron Pf 4 Mg/2 Ml Vial IVP 4 mg Q6H PRN Administration Nausea/Vomiting use 1st Polyethylene Glycol 17 gm 10/28/20 09:00 10/29/20 07:35 Polyethylene Glycol 3350 17 Gm Packet PO Not Given DAILY [facility] Sodium Chloride 10 ml 10/28/20 09:00 10/29/20 07:36 Flush - Normal Saline 10 Ml Syringe IVF 10 ml Q12HR DEION Administration Hospitalist Exam Vitals: Vital Signs (12 hours) Temp Pulse Resp BP BP BP Pulse Ox 10/29/20 12:00 98.0 F 76 20 94 L 10/29/20 08:15 76 15 10/29/20 08:00 97.9 F 80 18 136/88 93 L 10/29/20 07:39 98.1 F 83 18 135/88 93 L 10/29/20 07:35 135/88 10/29/20 05:22 98.1 F 84 18 116/80 96 10/29/20 02:10 108 H 163/117 H 97 10/29/20 02:05 97.7 F 97 24 H 158/110 H 96 Weight Admit Weight 213 lb 13.574 oz Weight 213 lb 13.574 oz General Appearance: awake alert Neck: no JVD Heart: RRR, no murmur Respiratory: no wheezes, no ronchi, normal chest expansion Gastrointestinal: soft, non-distended, normal bowel sounds Extremities: no edema Hosp A/P (1) Septic shock Code(s): A41.9 - SEPSIS, UNSPECIFIED ORGANISM; R65.21 - SEVERE SEPSIS WITH SEPTIC SHOCK Status: Acute (2) COPD (chronic obstructive pulmonary disease) Status: Acute Qualifiers: Emphysema type: unspecified (3) Hyponatremia Code(s): E87.1 - HYPO-OSMOLALITY AND HYPONATREMIA Status: Acute (4) PTSD (post-traumatic stress disorder) Code(s): F43.10 - POST-TRAUMATIC STRESS DISORDER, UNSPECIFIED Status: Acute (5) Nausea & vomiting Code(s): R11.2 - NAUSEA WITH VOMITING, UNSPECIFIED Status: Resolved Qualifiers: Vomiting Intractability: unspecified (6) Pyuria Code(s): R82.81 - PYURIA Status: Acute (7) UTI (urinary tract infection) Status: Acute Qualifiers: Urinary tract infection type: acute cystitis Hematuria presence: without hematuria Qualified Code(s): N30.00 - Acute cystitis without hematuria (8) Leukocytosis Code(s): D72.829 - ELEVATED WHITE BLOOD CELL COUNT, UNSPECIFIED Status: Acute Qualifiers: Leukocytosis type: unspecified Qualified Code(s): D72.829 - Elevated white blood cell count, unspecified (9) Hypotension Status: Acute Qualifiers: Hypotension type: unspecified hypotension type Qualified Code(s): I95.9 - Hypotension, unspecified - Plan valentino CCU pressors rocephin 2 gms iv daily ( based on urine C&S) lab including lactate fitness attendant consult 30 minutes critical care
[2020-10-29] MEDS ORDERED: Norepinephrine 8 MG/0.9% NS 250 ML IVPB SCH (13:45)
[2020-10-29] MEDS ORDERED: methylPREDNISolone Sod Succ/PF 125 MG/2 ML VIAL IVP SCH (14:00)
[2020-10-29] MEDS: cefTRIAXone\\ROCEPHIN 2 GM in Sodium Chloride 0.9% 100 ML IVPB SCH (14:46)
[2020-10-29] MEDS: Sodium Chloride 0.9% 1,000 ML IV SCH ×3 (14:46→22:48)
--- NOTE | 2020-10-29 15:01 | RAD ---
Portable frontal chest radiograph: 10/29/2020 COMPARISON: 10/27/2020 HISTORY: Sepsis FINDINGS: No pneumothorax or pleural fluid. No focal consolidation or alveolar edema. Heart and media stinal contours appear grossly unremarkable. Impression: Stable appearance of the chest. No focal consolidation or alveolar edema.
[2020-10-29 15:39] LABS: ALT (SGPT) 29 U/L (8-55); AST (SGOT) 41 U/L (5-34); Albumin 2.9 g/dL (3.5-5.0); Alkaline Phosphatase 77 U/L (40-110); Anion Gap 14 mmol/L (10-20); BUN (Urea Nitrogen) 13 mg/dL (9.8-20.1); Bilirubin, Total 0.6 mg/dL (0.2-1.2); Calc. Creatinine Clearance 147 mL/min (70-130); Calcium 7.6 mg/dL (7.8-10.44); Carbon Dioxide 23 mmol/L (22-29); Chloride 100 mmol/L (98-107); Globulin 2.9 g/dL (2.4-3.5); Glucose 83 mg/dL (70-105); Protein, Total 5.8 g/dL (6.0-8.3); Sodium 132 mmol/L (136-145)
[2020-10-29 16:35] LABS: #Basophils 0.1 thou/uL (0.0-0.2); #Monocytes 0.4 thou/uL (0.11-0.59); #Neutrophils 9.5 thou/uL (1.40-6.50); %Basophils 0.6 % (0.0-1.0); %Eosinophils 0.3 % (0.0-10.0); %Lymphocytes 9.2 % (21.0-51.0); %Monocytes 3.9 % (0.0-10.0); Hemoglobin 14.9 g/dL (12.0-16.0); Mean Corpuscular HGB CONC 34.2 g/dL (32.0-36.0); Mean Corpuscular Hemoglobin 41.3 pg (27.0-31.0); Platelet Count 236 thou/uL (130-400); RBC Distribution Width 15.3 % (11.5-14.5); White Blood Cell (WBC) Count 11.1 thou/uL (4.8-10.8)
[2020-10-29] MEDS: Enoxaparin Sodium 40 MG/0.4 ML SYRINGE SC SCH (19:58)
[2020-10-29] MEDS ORDERED: Cefdinir 300 MG CAP PO SCH (21:00)
--- NOTE | 2020-10-29 21:03 | EKG ---
Test Reason : TACHYCARDIA Blood Pressure : / mmHG Vent. Rate : 091 BPM Atrial Rate : 091 BPM P-R Int : 132 ms QRS Dur : 066 ms QT Int : 372 ms P-R-T Axes : -05 -04 004 degrees QTc Int : 457 ms Normal sinus rhythm Normal ECG When compared with ECG of 27-OCT-2020 14:09, (Unconfirmed) Questionable change in QRS axis Nonspecific T wave abnormality now evident in Inferior leads Confirmed by Adonis DE LA ROSA ([id number]) on 10/29/2020 9:02:44 PM Referred By: MADELINE Confirmed By:Adonis DE LA ROSA
--- NOTE | 2020-10-29 21:06 | CON ---
DATE OF CONSULTATION: 10/29/2020 75 minutes time. REASON FOR CONSULTATION: The patient has low blood pressure. HISTORY OF PRESENT ILLNESS: Ms. Nathan is a 60-year-old who was admitted to this facility on 10/27 by the hospitalist team. At that time, her principal complaint was shortness of breath, nausea, vomiting, and diarrhea. She also had fallen at home prior to presenting in the hospital. She had a workup in the ER and was found to have a urinary tract infection and was started on antibiotics. She had a CT pulmonary angiogram which was negative. The patient was started on antibiotics and fluids and got better. Her home antihypertensive had been held until this morning and she got those earlier today. Looking at her blood pressure trend for today, she had generally been extremely high with a blood pressure at 7 a.m. of 135/88 last night, ranging up to 163/117. She received her lisinopril, metoprolol, and clonidine this morning and now is running 93/65. I think at one point she was running even lower than that. Despite that, she has not had altered mentation and has actually done quite well. PAST MEDICAL HISTORY: 1. COPD, from which she is disabled. 2. Hypertension. PAST SURGICAL HISTORY: Tubal ligation. SOCIAL HISTORY: In the past, she has been a two-pack per day smoker, now she says she is down to a couple of cigarettes per day. Does not consume alcohol. Does not use illicit drugs. She lives between [facility]. MEDICATIONS: Prior to admission: 1. Lisinopril. 2. Metoprolol. 3. Prozac. 4. Albuterol. 5. Breo Ellipta. 6. Temazepam. ALLERGIES: NONE. FAMILY MEDICAL HISTORY: Unremarkable. REVIEW OF SYSTEMS: Twelve-point review of system was otherwise negative. PHYSICAL EXAMINATION: VITAL SIGNS: Temperature 98.3, pulse 71, blood pressure now 100/64, respiratory rate 24. GENERAL: She is awake and alert and in no acute distress. She is on no oxygen and her O2 saturation is 100%. HEENT: Unremarkable. NECK: No adenopathy or JVD. LUNGS: Clear to auscultation without wheeze or rhonchi. CARDIOVASCULAR: S1, S2 is regular without audible murmur. ABDOMEN: Soft and nontender to palpation. EXTREMITIES: No clubbing, cyanosis, or edema. DATA: Her COVID test was negative. White blood cells 18.1, hematocrit 49.6, and platelet count 311 with normal differential. Sodium 130, potassium 4.4, chloride 100, CO2 of 19, BUN 12, creatinine 0.6, and glucose 129. Urinalysis showed 7-10 white blood cells. Previous x-ray showed no mass, effusion, or infiltrate. ASSESSMENT: 1. Transient hypotension, which I think is probably from her antihypertensive earlier today. I do not think the patient is in septic shock. 2. Underlying chronic obstructive pulmonary disease. 3. Urinary tract infection. PLAN: 1. Continue the Rocephin. 2. Check labs including a procalcitonin level. 3. She has been on steroids. She is having a cortisol level checked but it will be high because she has been on steroids. She will continue IV fluids. I do not think she needs Levophed started. Job ID: [id number]
[2020-10-29] MEDS: Temazepam 15 MG CAP PO PRN (22:47)
[2020-10-30 05:01] LABS: #Lymphocytes 0.5 thou/uL (1.20-3.40); #Monocytes 0.3 thou/uL (0.11-0.59); #Neutrophils 7.3 thou/uL (1.40-6.50); %Eosinophils 0.3 % (0.0-10.0); %Lymphocytes 6.4 % (21.0-51.0); %Monocytes 3.1 % (0.0-10.0); %Neutrophils 90.3 % (42.0-75.0); Hemoglobin 13.3 g/dL (12.0-16.0); Mean Corpuscular HGB CONC 35.3 g/dL (32.0-36.0); Mean Corpuscular Hemoglobin 42.7 pg (27.0-31.0); Mean Platelet Volume 7.3 fL (7.4-10.4); Platelet Count 203 thou/uL (130-400); RBC Distribution Width 15.3 % (11.5-14.5); Red Blood Cell (RBC) Count 3.11 mill/uL (4.20-5.40); White Blood Cell (WBC) Count 8.1 thou/uL (4.8-10.8)
[2020-10-30 05:19] LABS: Anion Gap 11 mmol/L (10-20); BUN (Urea Nitrogen) 15 mg/dL (9.8-20.1); Calc. Creatinine Clearance 147 mL/min (70-130); Calcium 7.5 mg/dL (7.8-10.44); Carbon Dioxide 24 mmol/L (22-29); Chloride 99 mmol/L (98-107); Glucose 138 mg/dL (70-105); Potassium 4.7 mmol/L (3.5-5.1); Sodium 129 mmol/L (136-145)
[2020-10-30] MEDS: Famotidine 20 MG TAB PO SCH ×2 (07:55→21:45)
[2020-10-30] MEDS: Polyethylene Glycol 3350 17 GM Packet PO SCH (07:56)
[2020-10-30] MEDS: ALPRAZolam 0.25 MG TAB PO PRN ×2 (09:21→17:01)
[2020-10-30] MEDS: Sodium Chloride 0.9% 1,000 ML IV SCH ×2 (10:00→21:39)
--- NOTE | 2020-10-30 10:03 | PRG ---
DATE OF SERVICE: 10/30/2020 SUBJECTIVE: The patient remains in the ICU. She is not requiring any kind of vasopressor therapy. OBJECTIVE: VITAL SIGNS: Temperature is 98.3, pulse 72. Blood pressure has really been all over the place, I see one measured this morning at 153/100. Her current pressure is running 84/64, so I think there are some monitoring issues. GENERAL: She is awake, alert, in no distress. HEENT: Unremarkable. NECK: No adenopathy or JVD. LUNGS: Clear. CARDIAC: S1, S2. Regular. ABDOMEN: Soft. EXTREMITIES: No edema. LABORATORY DATA: White blood cell count 8.1, hematocrit 37.8, and platelet count 203. Sodium 129, potassium 4.7, chloride 99, CO2 of 24, BUN 15, creatinine 0.6, glucose 138. ASSESSMENT: I think the patient is unlikely to be hypotensive and I would not advocate treating her with any type of norepinephrine. I would withhold her antihypertensives until her blood pressure is less labile. From my standpoint, she could be transferred back to the floor. Job ID: [id number]
[2020-10-30] MEDS ORDERED: CEFTRIAXONE ROCEPHIN IM SCH ×2 (14:00→15:00)
[2020-10-30] MEDS ORDERED: LIDOCAINE 1% IM SCH ×2 (14:00→15:00)
[2020-10-30] MEDS ORDERED: ADMIXTURE FEE IM SCH ×2 (14:00→15:00)
--- NOTE | 2020-10-30 16:04 | PDOC.HOSPP ---
- Subjective Encounter Date: 10/30/20 Encounter Time: 16:00 Subjective: f/u for COPD exacerbation/N/V improved currently. Tolerated po intake. - Objective Vital Signs & Weight: Vital Signs (12 hours) Temp Pulse Pulse Pulse Resp BP BP 10/30/20 15:18 73 17 10/30/20 10:05 83 70 93/59 L 93/60 10/30/20 08:31 10/30/20 08:30 93 22 H 10/30/20 08:00 98.3 F Pulse Ox Pulse Ox Pulse Ox 10/30/20 15:18 99 10/30/20 10:05 97 93 L 10/30/20 08:31 96 10/30/20 08:30 95 10/30/20 08:00 97 Weight Admit Weight 213 lb 13.574 oz Weight 213 lb 13.574 oz Most Recent Monitor Data Heart Rate from ECG 85 NIBP 104/70 NIBP BP-Mean 81 Respiration from ECG 20 SpO2 92 I&O: 10/29/20 10/30/20 10/31/20 06:59 06:59 06:59 Intake Total 1330 3223 900 Output Total 401 1650 900 Balance 929 1573 0 Result Diagrams: 10/30/20 04:45 10/30/20 04:45 Additional Labs: Microbiology 10/27/20 14:48 Urine voided Urine Culture - Final Escherichia coli 10/29/20 12:49 Venous blood - Right Arm Blood Culture - Preliminary Specimen has been received and culture in progress. No Growth to date. 10/29/20 12:49 Venous blood - Left Arm Blood Culture - Preliminary Specimen has been received and culture in progress. No Growth to date. Laboratory Tests 10/27/20 10/28/20 10/28/20 17:47 09:44 23:41 Sodium 128 L U Benzodiazepines Scrn Detected H Influenza A RNA INAAT Not Detected Influenza B RNA INAAT Not Detected SARS-CoV-2 Rap RNA(RT-PCR) Not Detected 10/29/20 10/29/20 10/29/20 02:27 06:02 14:55 Sodium 130 L 130 L 132 L U Benzodiazepines Scrn Influenza A RNA INAAT Influenza B RNA INAAT SARS-CoV-2 Rap RNA(RT-PCR) Radiology Reviewed by me: Yes (PCXR - no acute infiltrates) EKG Reviewed by me: Yes (Tele - SR) Hospitalist TODD - Medication Medications: Active Medications Generic Name Dose Route Start Last Admin Trade Name Freq PRN Reason Stop Dose Admin Acetaminophen 650 mg 10/27/20 21:01 10/28/20 19:03 Acetaminophen 325 Mg Tab PO 650 mg Q4H PRN Administration Headache/Fever/Mild Pain (1-3) Albuterol/Ipratropium 3 ml 10/28/20 07:00 10/30/20 15:18 Ipratropium/Albuterol Sulfate 3 Ml Neb NEB 3 ml [id number] DEION Administration Alprazolam 0.25 mg 10/29/20 02:39 10/30/20 09:21 Alprazolam 0.25 Mg Tab PO 0.25 mg TIDPRN PRN Administration Anxiety Enoxaparin Sodium 40 mg 10/28/20 21:00 10/29/20 19:58 Enoxaparin Sodium 40 Mg/0.4 Ml Syringe SC 40 mg 2100 DEION Administration Famotidine 20 mg 10/28/20 09:00 10/30/20 07:55 Famotidine 20 Mg Tab PO 20 mg BID DEION Administration Promethazine HCl 12.5 mg/ 50.5 mls @ 202 mls/hr 10/27/20 21:08 10/28/20 16:06 Sodium Chloride IVPB 50.5 mls Q6H PRN Administration Nausea/vomiting use second Sodium Chloride 1,000 mls @ 150 mls/hr 10/29/20 13:45 10/30/20 10:00 Normal Saline 0.9% IV 1,000 mls .Q6H40M DEION Administration Melatonin 6 mg 10/27/20 22:59 10/28/20 01:13 Melatonin 3 Mg Tab PO 6 mg HS PRN Administration Insomnia Mometasone Furoate/Formoterol Fumar 1 puff 10/28/20 18:30 10/29/20 20:52 Mometasone 100 Mcg/Formoterol 5 Mcg 120 Puff Inhaler INH 1 puff BID-RT DEION Administration Ondansetron HCl 4 mg 10/27/20 21:08 10/28/20 12:42 Ondansetron Pf 4 Mg/2 Ml Vial IVP 4 mg Q6H PRN Administration Nausea/Vomiting use 1st Polyethylene Glycol 17 gm 10/28/20 09:00 10/30/20 07:56 Polyethylene Glycol 3350 17 Gm Packet PO Not Given DAILY DEION Sodium Chloride 10 ml 10/28/20 09:00 10/30/20 07:56 Flush - Normal Saline 10 Ml Syringe IVF 10 ml Q12HR DEION Administration Temazepam 30 mg 10/28/20 08:53 10/29/20 22:47 Temazepam 15 Mg Cap PO 30 mg HS PRN Administration Insomnia Hospitalist Exam Vitals: Vital Signs (12 hours) Temp Pulse Pulse Pulse Resp BP BP 10/30/20 15:18 73 17 10/30/20 10:05 83 70 93/59 L 93/60 10/30/20 08:31 10/30/20 08:30 93 22 H 10/30/20 08:00 98.3 F Pulse Ox Pulse Ox Pulse Ox 10/30/20 15:18 99 10/30/20 10:05 97 93 L 10/30/20 08:31 96 10/30/20 08:30 95 10/30/20 08:00 97 Weight Admit Weight 213 lb 13.574 oz Weight 213 lb 13.574 oz Most Recent Monitor Data Heart Rate from ECG 85 NIBP 104/70 NIBP BP-Mean 81 Respiration from ECG 20 SpO2 92 General Appearance: NAD, awake alert Eye: PERRL, anicteric sclera ENT: normocephalic atraumatic, no oropharyngeal lesions Neck: supple, symmetric, no JVD, no thyromegaly, no lymphadenopathy Heart: RRR, no gallops, no rubs, normal peripheral pulses Heart - other findings: S1, S2 Respiratory - other findings: diminished in bases, occ wheeze Gastrointestinal: soft, non-tender, non-distended, normal bowel sounds, no palpable masses Extremities: no cyanosis, no clubbing, no edema Skin: normal turgor, no lesions Neurological: cranial nerve grossly intact, no new deficit Musculoskeletal: normal tone, normal strength, no muscle wasting Psychiatric: normal affect, A&O x 3 Hosp A/P (1) E. coli UTI Code(s): N39.0 - URINARY TRACT INFECTION, SITE NOT SPECIFIED; B96.20 - UNSP ES CHERICHIA COLI THE CAUSE OF DISEASES CLASSD ELSWHR Status: Acute Plan: Continue Rocephin IV daily, convert to po option in 24h (2) COPD exacerbation Code(s): J44.1 - CHRONIC OBSTRUCTIVE PULMONARY DISEASE W (ACUTE) EXACERBATION Status: Acute Plan: Suspected, improving, continue O2 PRN, Continue Rocephin/Dulera/Duonebs (3) Hyponatremia Code(s): E87.1 - HYPO-OSMOLALITY AND HYPONATREMIA Status: Acute Plan: Improved, likely SIADH (4) Hypotension Status: Acute Qualifiers: Hypotension type: unspecified hypotension type Qualified Code(s): I95.9 - Hypotension, unspecified (5) Nausea & vomiting Code(s): R11.2 - NAUSEA WITH VOMITING, UNSPECIFIED Status: Resolved Qualifiers: Vomiting Intractability: unspecified Plan: Resolving, antiemetics as tolerated, ADAT - Plan continue antibiotics, PT/OT, social media editor, respiratory therapy, out of bed/ambulate, DVT proph w/SCDs Stable overall Continue Rocephin IV Pulmonary support with Duonebs/Dulera/Rocephin OOB with PT Transfer to telemetry AM lab: BMP, CBC Likely home in am 10/31/20
[2020-10-30] MEDS ORDERED: cefTRIAXone\\ROCEPHIN 2 GM in Sodium Chloride 0.9% 100 ML IVPB SCH (17:00)
[2020-10-30] MEDS: Mometasone 100 MCG/Formoterol 5 MCG 120 PUFF INHALER INH SCH (19:08)
[2020-10-30] MEDS: Enoxaparin Sodium 40 MG/0.4 ML SYRINGE SC SCH (21:38)
[2020-10-30] MEDS: Melatonin 3 MG TAB PO PRN (21:40)
[2020-10-30] MEDS: Temazepam 15 MG CAP PO PRN (21:40)
[2020-10-31] MEDS: Sodium Chloride 0.9% 1,000 ML IV SCH (04:05)
[2020-10-31 04:44] LABS: #Eosinphils 0.1 thou/uL (0.0-0.7); #Lymphocytes 1.8 thou/uL (1.20-3.40); #Monocytes 0.5 thou/uL (0.11-0.59); #Neutrophils 5.8 thou/uL (1.40-6.50); %Basophils 0.3 % (0.0-1.0); %Eosinophils 0.7 % (0.0-10.0); %Lymphocytes 22.6 % (21.0-51.0); %Monocytes 5.7 % (0.0-10.0); %Neutrophils 70.8 % (42.0-75.0); Hemoglobin 14.2 g/dL (12.0-16.0); Mean Corpuscular HGB CONC 34.1 g/dL (32.0-36.0); Mean Corpuscular Hemoglobin 41.1 pg (27.0-31.0); Mean Platelet Volume 6.7 fL (7.4-10.4); Platelet Count 231 thou/uL (130-400); RBC Distribution Width 15.4 % (11.5-14.5); Red Blood Cell (RBC) Count 3.45 mill/uL (4.20-5.40); White Blood Cell (WBC) Count 8.1 thou/uL (4.8-10.8)
[2020-10-31 05:10] LABS: Anion Gap 11 mmol/L (10-20); BUN (Urea Nitrogen) 11 mg/dL (9.8-20.1); Calc. Creatinine Clearance 152 mL/min (70-130); Calcium 7.9 mg/dL (7.8-10.44); Carbon Dioxide 28 mmol/L (22-29); Chloride 103 mmol/L (98-107); Glucose 91 mg/dL (70-105); Potassium 4.5 mmol/L (3.5-5.1); Sodium 137 mmol/L (136-145)
[2020-10-31] MEDS: Mometasone 100 MCG/Formoterol 5 MCG 120 PUFF INHALER INH SCH ×2 (07:23→19:26)
[2020-10-31] MEDS: ALPRAZolam 0.25 MG TAB PO PRN ×2 (08:44→17:36)
[2020-10-31] MEDS: Famotidine 20 MG TAB PO SCH ×2 (08:44→21:46)
--- NOTE | 2020-10-31 09:29 | PDOC.HOSPP ---
- Subjective Encounter Date: 10/31/20 Encounter Time: 09:27 Subjective: Ms. Duvall was seen today in follow-up of UTI and generalized weakness. She is feeling better today, but says she felt more dizzy and weak than yesterday. - Objective Vital Signs & Weight: Vital Signs (12 hours) Temp Pulse Resp Pulse Ox 10/31/20 07:50 96 10/31/20 07:23 96 10/31/20 07:20 99 21 H 96 10/31/20 04:00 98.0 F 10/31/20 00:00 97.7 F Weight Admit Weight 213 lb 13.574 oz Weight 213 lb 13.574 oz Most Recent Monitor Data Heart Rate from ECG 97 NIBP 132/69 NIBP BP-Mean 90 Respiration from ECG 22 SpO2 96 I&O: 10/30/20 10/31/20 11/01/20 06:59 06:59 06:59 Intake Total 3223 4962 240 Output Total 1650 3405 225 Balance 1573 1557 15 Result Diagrams: 10/31/20 04:12 10/31/20 04:12 Hospitalist ROS - Medication Medications: Active Medications Generic Name Dose Route Start Last Admin Trade Name Freq PRN Reason Stop Dose Admin Acetaminophen 650 mg 10/27/20 21:01 10/28/20 19:03 Acetaminophen 325 Mg Tab PO 650 mg Q4H PRN Administration Headache/Fever/Mild Pain (1-3) Albuterol/Ipratropium 3 ml 10/28/20 07:00 10/31/20 07:20 Ipratropium/Albuterol Sulfate 3 Ml Neb NEB 3 ml [id number] DEION Administration Alprazolam 0.25 mg 10/29/20 02:39 10/31/20 08:44 Alprazolam 0.25 Mg Tab PO 0.25 mg TIDPRN PRN Administration Anxiety Enoxaparin Sodium 40 mg 10/28/20 21:00 10/30/20 21:38 Enoxaparin Sodium 40 Mg/0.4 Ml Syringe SC 40 mg 2100 DEION Administration Famotidine 20 mg 10/28/20 09:00 10/31/20 08:44 Famotidine 20 Mg Tab PO 20 mg BID DEION Administration Promethazine HCl 12.5 mg/ 50.5 mls @ 202 mls/hr 10/27/20 21:08 10/28/20 16:06 Sodium Chloride IVPB 50.5 mls Q6H PRN Administration Nausea/vomiting use second Sodium Chloride 1,000 mls @ 150 mls/hr 10/29/20 13:45 10/31/20 04:05 Normal Saline 0.9% IV 1,000 mls .Q6H40M DEION Administration Ceftriaxone Sodium 2 gm/ 100 mls @ 200 mls/hr 10/30/20 17:00 10/30/20 17:01 Sodium Chloride IVPB 100 mls 1700 DEION Administration Melatonin 6 mg 10/27/20 22:59 10/30/20 21:40 Melatonin 3 Mg Tab PO 6 mg HS PRN Administration Insomnia Mometasone Furoate/Formoterol Fumar 1 puff 10/28/20 18:30 10/31/20 07:23 Mometasone 100 Mcg/Formoterol 5 Mcg 120 Puff Inhaler INH 1 puff BID-RT DEION Administration Ondansetron HCl 4 mg 10/27/20 21:08 10/28/20 12:42 Ondansetron Pf 4 Mg/2 Ml Vial IVP 4 mg Q6H PRN Administration Nausea/Vomiting use 1st Polyethylene Glycol 17 gm 10/28/20 09:00 10/30/20 07:56 Polyethylene Glycol 3350 17 Gm Packet PO Not Given DAILY DEION Sodium Chloride 10 ml 10/28/20 09:00 10/30/20 21:39 Flush - Normal Saline 10 Ml Syringe IVF Not Given Q12HR DEION Temazepam 30 mg 10/28/20 08:53 10/30/20 21:40 Temazepam 15 Mg Cap PO 30 mg HS PRN Administration Insomnia Hospitalist Exam Vitals: Vital Signs (12 hours) Temp Pulse Resp Pulse Ox 10/31/20 07:50 96 10/31/20 07:23 96 10/31/20 07:20 99 21 H 96 10/31/20 04:00 98.0 F 10/31/20 00:00 97.7 F Weight Admit Weight 213 lb 13.574 oz Weight 213 lb 13.574 oz Most Recent Monitor Data Heart Rate from ECG 97 NIBP 132/69 NIBP BP-Mean 90 Respiration from ECG 22 SpO2 96 Eye: PERRL, anicteric sclera ENT: normocephalic atraumatic, no oropharyngeal lesions Heart: RRR, no murmur, no gallops, no rubs, normal peripheral pulses Respiratory: CTAB Gastrointestinal: soft, non-tender, non-distended, normal bowel sounds, no palpable masses, no hepatomegaly Extremities: no cyanosis, no edema (palpable d.p. pulses, she has a cut on the right jackson) Hosp A/P (1) E. coli UTI Code(s): N39.0 - URINARY TRACT INFECTION, SITE NOT SPECIFIED; B96.20 - UNSP ESCHERICHIA COLI THE CAUSE OF DISEASES CLASSD ELSWHR Status: Acute (2) COPD (chronic obstructive pulmonary disease) Status: Acute Qualifiers: Emphysema type: unspecified (3) Hyponatremia Code(s): E87.1 - HYPO-OSMOLALITY AND HYPONATREMIA Status: Acute (4) PTSD (post-traumatic stress disorder) Code(s): F43.10 - POST-TRAUMATIC STRESS DISORDER, UNSPECIFIED Status: Acute - Plan * UTI with generalized weakness- will continue Rocephin, and transition to omnicef at discharge * Generalized weakness- she has been witnessed getting up to the bedside commode without difficulty, by the RN. Will continue PT/OT and see what the recommendations are * PTSD- Prozac was discontinued- possibly due to hyponatremia. Consider adding Buspar, and continue Alprazolam as needed cautiously * Hyponatremia- resolved * COPD- stable- continue long acting beta-agonist, and prn duonebs. * Hypotension- resolved * Home soon
[2020-10-31] MEDS: Polyethylene Glycol 3350 17 GM Packet PO SCH (10:11)
[2020-10-31] MEDS: Enoxaparin Sodium 40 MG/0.4 ML SYRINGE SC SCH (21:46)
[2020-10-31] MEDS: Melatonin 3 MG TAB PO PRN (21:46)
[2020-10-31] MEDS: Temazepam 15 MG CAP PO PRN (22:48)
[2020-10-31] MEDS: Cefdinir 300 MG CAP PO SCH (22:48)
[2020-10-31] MEDS: cefTRIAXone\\ROCEPHIN 2 GM in Sodium Chloride 0.9% 100 ML IVPB SCH (23:32)
[2020-11-01] MEDS: ALPRAZolam 0.25 MG TAB PO PRN (05:36)
[2020-11-01 06:17] LABS: #Eosinphils 0.1 thou/uL (0.0-0.7); #Lymphocytes 1.4 thou/uL (1.20-3.40); #Monocytes 0.6 thou/uL (0.11-0.59); #Neutrophils 5.6 thou/uL (1.40-6.50); %Basophils 0.5 % (0.0-1.0); %Eosinophils 1.5 % (0.0-10.0); %Lymphocytes 17.5 % (21.0-51.0); %Monocytes 7.8 % (0.0-10.0); %Neutrophils 72.8 % (42.0-75.0); Hemoglobin 13.1 g/dL (12.0-16.0); Mean Corpuscular HGB CONC 34.5 g/dL (32.0-36.0); Mean Corpuscular Hemoglobin 41.8 pg (27.0-31.0); Mean Platelet Volume 6.3 fL (7.4-10.4); Platelet Count 212 thou/uL (130-400); RBC Distribution Width 15.5 % (11.5-14.5); Red Blood Cell (RBC) Count 3.14 mill/uL (4.20-5.40); White Blood Cell (WBC) Count 7.8 thou/uL (4.8-10.8)
[2020-11-01] MEDS: Mometasone 100 MCG/Formoterol 5 MCG 120 PUFF INHALER INH SCH (06:32)
[2020-11-01 06:36] LABS: Anion Gap 10 mmol/L (10-20); BUN (Urea Nitrogen) 11 mg/dL (9.8-20.1); Calc. Creatinine Clearance 160 mL/min (70-130); Calcium 7.8 mg/dL (7.8-10.44); Carbon Dioxide 28 mmol/L (22-29); Chloride 101 mmol/L (98-107); Glucose 97 mg/dL (70-105); Potassium 3.8 mmol/L (3.5-5.1); Sodium 135 mmol/L (136-145)
[2020-11-01 08:04] VITALS: TEMP 98.2
[2020-11-01] MEDS: Polyethylene Glycol 3350 17 GM Packet PO SCH (08:37)
[2020-11-01] MEDS: Famotidine 20 MG TAB PO SCH (08:37)
[2020-11-01] MEDS: Cefdinir 300 MG CAP PO SCH (08:37)
--- NOTE | 2020-11-01 16:07 | PDOC.HOSPP ---
- Subjective Encounter Date: 11/01/20 Encounter Time: 16:05 Subjective: Ms. Duvall was seen today in follow-up of UTI and generalized weakness. She does not have any complaints today. - Objective Vital Signs & Weight: Vital Signs (12 hours) Temp Pulse Resp BP Pulse Ox 11/01/20 08:00 98.2 F 85 16 129/77 98 11/01/20 06:28 92 18 95 11/01/20 06:03 98.0 F 84 18 130/80 97 Weight Admit Weight 213 lb 13.574 oz Weight 213 lb 13.574 oz Most Recent Monitor Data Heart Rate from ECG 87 NIBP 143/69 NIBP BP-Mean 93 Respiration from ECG 23 SpO2 96 I&O: 10/31/20 11/01/20 11/02/20 06:59 06:59 06:59 Intake Total 4962 2540 Output Total 3405 825 Balance 1557 1715 Result Diagrams: 11/01/20 05:35 11/01/20 05:35 Hospitalist ROS - Medication Medications: Active Medications Generic Name Dose Route Start Last Admin Trade Name Freq PRN Reason Stop Dose Admin Acetaminophen 650 mg 10/27/20 21:01 10/28/20 19:03 Acetaminophen 325 Mg Tab PO 650 mg Q4H PRN Administration Headache/Fever/Mild Pain (1-3) Albuterol/Ipratropium 3 ml 10/28/20 07:00 11/01/20 14:16 Ipratropium/Albuterol Sulfate 3 Ml Neb NEB 3 ml [id number] DEION Administration Alprazolam 0.25 mg 10/29/20 02:39 11/01/20 05:36 Alprazolam 0.25 Mg Tab PO 0.25 mg TIDPRN PRN Administration Anxiety Cefdinir 300 mg 10/31/20 21:00 11/01/20 08:37 Cefdinir 300 Mg Cap PO 300 mg BID DEION Administration Enoxaparin Sodium 40 mg 10/28/20 21:00 10/31/20 21:46 Enoxaparin Sodium 40 Mg/0.4 Ml Syringe SC 40 mg 2100 DEION Administration Famotidine 20 mg 10/28/20 09:00 11/01/20 08:37 Famotidine 20 Mg Tab PO 20 mg BID DEION Administration Promethazine HCl 12.5 mg/ 50.5 mls @ 202 mls/hr 10/27/20 21:08 10/28/20 16:06 Sodium Chloride IVPB 50.5 mls Q6H PRN Administration Nausea/vomiting use second Melatonin 6 mg 10/27/20 22:59 10/31/20 21:46 Melatonin 3 Mg Tab PO 6 mg HS PRN Administration Insomnia Mometasone Furoate/Formoterol Fumar 1 puff 10/28/20 18:30 11/01/20 06:32 Mometasone 100 Mcg/Formoterol 5 Mcg 120 Puff Inhaler INH 1 puff BID-RT DEION Administration Ondansetron HCl 4 mg 10/27/20 21:08 10/28/20 12:42 Ondansetron Pf 4 Mg/2 Ml Vial IVP 4 mg Q6H PRN Administration Nausea/Vomiting use 1st Polyethylene Glycol 17 gm 10/28/20 09:00 11/01/20 08:37 Polyethylene Glycol 3350 17 Gm Packet PO 17 gm DAILY DEION Administration Sodium Chloride 10 ml 10/28/20 09:00 11/01/20 08:37 Flush - Normal Saline 10 Ml Syringe IVF 10 ml Q12HR DEION Administration Temazepam 30 mg 10/28/20 08:53 10/31/20 22:48 Temazepam 15 Mg Cap PO 30 mg HS PRN Administration Insomnia Hospitalist Exam Vitals: Vital Signs (12 hours) Temp Pulse Resp BP Pulse Ox 11/01/20 08:00 98.2 F 85 16 129/77 98 11/01/20 06:28 92 18 95 11/01/20 06:03 98.0 F 84 18 130/80 97 Weight Admit Weight 213 lb 13.574 oz Weight 213 lb 13.574 oz Most Recent Monitor Data Heart Rate from ECG 87 NIBP 143/69 NIBP BP-Mean 93 Respiration from ECG 23 SpO2 96 General Appearance: NAD, awake alert Eye: PERRL, anicteric sclera Heart: RRR, no murmur, no gallops, no rubs, normal peripheral pulses Respiratory: CTAB, no wheezes, no rales, no ronchi, normal chest expansion, no tachypnea, normal percussion Gastrointestinal: soft, non-tender, non-distended, normal bowel sounds, no palpable masses, no hepatomegaly Extremities: no cyanosis, no edema (palpable d.p. pulses bilaterally, no lesions) Hosp A/P (1) E. coli UTI Code(s): N39.0 - URINARY TRACT INFECTION, SITE NOT SPECIFIED; B96.20 - UNSP ESCHERICHIA COLI THE CAUSE OF DISEASES CLASSD ELSWHR Status: Acute (2) COPD (chronic obstructive pulmonary disease) Status: Acute Qualifiers: Emphysema type: unspecified (3) Hyponatremia Code(s): E87.1 - HYPO-OSMOLALITY AND HYPONATREMIA Status: Acute (4) PTSD (post-traumatic stress disorder) Code(s): F43.10 - POST-TRAUMATIC STRESS DISORDER, UNSPECIFIED Status: Acute - Plan * UTI with generalized weakness- improved * She has not developed fever after transition to oral antibiotic * Hyponatremia- resolved * COPD- stable- continue long acting beta-agonist, and prn duonebs. * Hypotension- resolved * Home today
[2020-11-01 16:23] VITALS: BP 122/78
--- NOTE | 2020-11-01 17:00 | PDOC.DS.DS ---
Provider Date of Admission: 10/29/20 12:19 Date of Discharge: 11/01/20 Admitting Provider: Hao Elam MD Consultations: Nephrology, Pulmonary Course Hospital Course: Mr Duvall is a pleasant 60 year old female who was admitted to the hospital with shortness of breath cough, nausea vomiting and diarrhea. With regards to the shortness of breath, she had a CT scan of the chest which was negative for PE. She found to have a COPD exacerbation. She was treated and improved. Abdominal ultrasound was done to evaluate the nausea vomiting. She was found to have a fatty liver. No evidence of gallstones. She was found to have a UTI, and urine culture grew E coli, which was yip-sensitive. After she was on IV antibiotics for this these symptoms resolved, as well as the generalized weakness she experienced. She was seen by ID and the analytics specialist due to concerns of hypotension. This resolved rapidly, and was not felt to be due to sepsis. She was evaluated by Physical Therapy prior to her discharge and did not demonstrate any additional therapeutic needs. She was therefore discharged home on Omnicef. Pertinent Studies: CTA chest- negative for PE Abdominal Ultrasound- Diffuse fatty Liver Resuscitation Status: 10/27/20 21:01 Resuscitation Status Routine Resuscitation Status: FULL: Full Resuscitation Lab Results: 11/01/20 05:35 11/01/20 05:35 Abnormal Lab Results - Last 48 hrs 10/31/20 04:12: RBC 3.45 L, MCV 121.0 H, MCH 41.1 H, RDW 15.4 H, MPV 6.7 L 11/01/20 05:35: Sodium 135 L, Creatinine 0.58 L 11/01/20 05:35: RBC 3.14 L, MCV 121.0 H, MCH 41.8 H, RDW 15.5 H, MPV 6.3 L, Lymphocytes % 17.5 L, Monocytes # 0.6 H Microbiology - Entire Visit 10/29/20 12:49 Venous blood - Left Arm Blood Culture - Preliminary NO GROWTH AT 48 HOURS 10/29/20 12:49 Venous blood - Right Arm Blood Culture - Preliminary NO GROWTH AT 48 HOURS 10/27/20 14:48 Urine voided Urine Culture - Final Escherichia coli Vitals: Vital Signs (12 hours) Temp Pulse Resp BP BP Pulse Ox 11/01/20 16:21 98.2 F 70 18 122/78 95 11/01/20 08:00 98.2 F 85 16 129/77 98 11/01/20 06:28 92 18 95 11/01/20 06:03 98.0 F 84 18 130/80 97 Weight Admit Weight 213 lb 13.574 oz Weight 213 lb 13.574 oz Most Recent Monitor Data Heart Rate from ECG 87 NIBP 143/69 NIBP BP-Mean 93 Respiration from ECG 23 SpO2 96 Physical Exam: The patient was seen and examined on the day of discharge. Problem (1) E. coli UTI Code(s): N39.0 - URINARY TRACT INFECTION, SITE NOT SPECIFIED; B96.20 - UNSP ESCHERICHIA COLI THE CAUSE OF DISEASES CLASSD ELSWHR Status: Acute (2) COPD (chronic obstructive pulmonary disease) Status: Acute Qualifiers: Emphysema type: unspecified (3) Hyponatremia Code(s): E87.1 - HYPO-OSMOLALITY AND HYPONATREMIA Status: Acute (4) PTSD (post-traumatic stress disorder) Code(s): F43.10 - POST-TRAUMATIC STRESS DISORDER, UNSPECIFIED Status: Acute Plan Prescriptions: Cefdinir [Omnicef] 300 mg PO BID #14 cap ALPRAZolam [Xanax] 0.25 mg PO TIDPRN PRN #10 tab PRN Reason: Anxiety Home Medications: Medication Instructions Recorded Confirmed Type FLUoxetine HCl [Prozac] 40 mg PO DAILY 10/28/20 10/28/20 History Fluticasone/Vilanterol [Breo 1 each IH BID 10/28/20 10/28/20 History Ellipta 200-25 Mcg INH] Lisinopril 40 mg PO DAILY 10/28/20 10/28/20 History Metoprolol Succinate [Toprol XL] 25 mg PO DAILY 10/28/20 10/28/20 History Temazepam 30 mg PO HS PRN 10/28/20 10/28/20 History Ventolin HFA Inhaler 1 puff INH Q4HR PRN 10/28/20 10/28/20 History ALPRAZolam [Xanax] 0.25 mg PO TIDPRN PRN #10 tab 11/01/20 Rx Cefdinir [Omnicef] 300 mg PO BID #14 cap 11/01/20 Rx Allergies: No Known Drug Allergies Allergy (Verified 10/28/20 04:19) Discharge Instructions:: Follow-up with your Primary Care Provider in 1 week Activity:: Activity as Tolerated Nourishment:: Heart Healthy Diet Disposition: HOME Quality CORE MEASURES:: N/A
== END 2020-11-01 17:30 | disposition home or self-care (01) | DRG 191 ==
LOC: ERS 13:52 → ERHOLD 18:30 → 2NO 10-28 04:01 → T4-A 10-28 14:18 → OBSVTOIN 10-29 12:19 → CCU 10-29 14:23 → T4-B 10-31 21:30
PROVIDERS: ADMIT Internal Medicine; ATTEND Internal Medicine
DX: J44.1 Chronic obstructive pulmonary disease with (acute) exacerbation (principal); E87.1 Hypo-osmolality and hyponatremia; N39.0 Urinary tract infection, site not specified; F43.10 Post-traumatic stress disorder, unspecified; I12.9 Hypertensive chronic kidney disease with stage 1 through stage 4 chronic kidney disease, or unspecified chronic kidney disease; N18.1 Chronic kidney disease, stage 1; I95.9 Hypotension, unspecified; B96.20 Unspecified Escherichia coli [E. coli] as the cause of diseases classified elsewhere; Z20.822 Contact with and (suspected) exposure to COVID-19; Z98.51 Tubal ligation status
CPT/HCPCS: 0240U; 36415; 71045; 71275; 76705; 80048; 80053; 80306; 81003; 81015; 82436; 82533; 83605; 83690; 83735; 83930; 83935; 84133; 84145; 84300; 84484; 85025; 85379; 87040; 87077; 87086; 87186; 93005; 93010; 94640; 96372; 96374; 96375; 96376; G0378; J0456; J0696; J1650; J1885; J2405; J2550; J2920; J2930; J3475; J3490; J7050; J7620; Q9967

== ENCOUNTER 2020-12-27 14:09 | Inpatient (IN) | payer MEDICARE, MEDICAID ==
[~2020-12-27 14:09] MED LIST changes: +Iopamidol 370 76% 100 ML VIAL ONE; -Iopamidol-370 76% 500 ML 1 ML ONE
[2020-12-27 15:43] LABS: #Eosinphils 0.1 thou/uL (0.0-0.7); #Lymphocytes 1.3 thou/uL (1.20-3.40); #Monocytes 0.9 thou/uL (0.11-0.59); %Basophils 0.3 % (0.0-1.0); %Eosinophils 0.6 % (0.0-10.0); %Lymphocytes 13.5 % (21.0-51.0); %Neutrophils 75.5 % (42.0-75.0); Hemoglobin 15.8 g/dL (12.0-16.0); Mean Corpuscular HGB CONC 35.4 g/dL (32.0-36.0); Mean Corpuscular Hemoglobin 42.8 pg (27.0-31.0); Mean Platelet Volume 7.8 fL (7.4-10.4); Platelet Count 207 thou/uL (130-400); RBC Distribution Width 16.8 % (11.5-14.5); White Blood Cell (WBC) Count 9.3 thou/uL (4.8-10.8)
[2020-12-27 15:58] LABS: ALT (SGPT) 41 U/L (8-55); AST (SGOT) 53 U/L (5-34); Albumin 3.5 g/dL (3.5-5.0); Alkaline Phosphatase 76 U/L (40-110); Anion Gap 16 mmol/L (10-20); BUN (Urea Nitrogen) 7 mg/dL (9.8-20.1); Bilirubin, Total 0.9 mg/dL (0.2-1.2); Calc. Creatinine Clearance 0 mL/min (70-130); Calcium 8.6 mg/dL (7.8-10.44); Carbon Dioxide 23 mmol/L (22-29); Chloride 100 mmol/L (98-107); Globulin 3.2 g/dL (2.4-3.5); Glucose 97 mg/dL (70-105); Lipase 15 U/L (8-78); Potassium 4.2 mmol/L (3.5-5.1); Protein, Total 6.7 g/dL (6.0-8.3); Sodium 135 mmol/L (136-145)
[2020-12-27 16:01] LABS: Anisocytosis SLIGHT = 6-15 cells (100X) (0-5/hpf); MDiff Complete? YES; Macrocytosis MODERATE=16-30 cells (100X) (0-5/hpf); Platelet Morphology Comment Appears Adequate
[2020-12-27] MEDS ORDERED: Morphine 4 MG/ML VIAL ONE (16:40)
[2020-12-27 19:17] LABS: Troponin I 0.037 ng/mL (< 0.028)
[2020-12-27] MEDS ORDERED: Senokot S 8.6-50 MG TAB PO PRN (19:59)
[2020-12-27] MEDS ORDERED: Acetaminophen 325 MG TAB PO PRN (19:59)
[2020-12-27 20:23] LABS: Bacteria/HPF None Seen HPF (None Seen); Bilirubin Negative (Negative); Blood, Urine Negative (Negative); Clarity Clear (Clear); Glucose, Urine (Dipstick) Normal (Negative); Ketone, Urine 40 mg/dL (Negative); Leukocyte Negative Leu/uL (Negative); Nitrite Negative (Negative); Protein, Urine (Dipstick) 10 mg/dL (Neg-Trace); RBC/HPF 0-3 HPF (0-3); Squamous Epithelial 0-3 HPF (0-3); Urobilinogen Normal mg/dL (Less than 2); WBC/HPF 0-3 HPF (0-3)
[2020-12-27 20:28] LABS: Specific Gravity, Urine 1.063 (1.002-1.036)
[2020-12-27 20:29] LABS: Urine Culture Reflex No No
[2020-12-27] MEDS ORDERED: Albuterol 200 PUFF (6.7GM INHALER) INH PRN (21:54)
[2020-12-27] MEDS: Famotidine 20 MG TAB PO SCH (22:21)
[2020-12-27] MEDS: Sodium Chloride 0.9% 1,000 ML IV SCH (22:22)
[2020-12-27] MEDS: Nicotine 14 MG PATCH TD SCH (22:32)
[2020-12-27 22:49] LABS: Troponin I 0.021 ng/mL (< 0.028)
[2020-12-27] MEDS: Temazepam 15 MG CAP PO PRN (22:53)
[2020-12-28 00:47] LABS: SARS-CoV-2 PCR by NAA Not Detected (NotDetected)
[2020-12-28 05:27] LABS: #Basophils 0.1 thou/uL (0.0-0.2); #Eosinphils 0.1 thou/uL (0.0-0.7); #Lymphocytes 1.8 thou/uL (1.20-3.40); #Monocytes 0.9 thou/uL (0.11-0.59); #Neutrophils 3.4 thou/uL (1.40-6.50); %Basophils 1.2 % (0.0-1.0); %Eosinophils 1.8 % (0.0-10.0); %Lymphocytes 28.4 % (21.0-51.0); %Monocytes 14.3 % (0.0-10.0); %Neutrophils 54.4 % (42.0-75.0); Hemoglobin 14.1 g/dL (12.0-16.0); Mean Corpuscular HGB CONC 34.5 g/dL (32.0-36.0); Mean Corpuscular Hemoglobin 41.7 pg (27.0-31.0); Mean Platelet Volume 7.3 fL (7.4-10.4); Platelet Count 209 thou/uL (130-400); RBC Distribution Width 16.5 % (11.5-14.5); Red Blood Cell (RBC) Count 3.38 mill/uL (4.20-5.40); White Blood Cell (WBC) Count 6.3 thou/uL (4.8-10.8)
[2020-12-28 05:57] LABS: ALT (SGPT) 36 U/L (8-55); AST (SGOT) 46 U/L (5-34); Alkaline Phosphatase 67 U/L (40-110); Anion Gap 14 mmol/L (10-20); BUN (Urea Nitrogen) 7 mg/dL (9.8-20.1); Bilirubin, Total 0.9 mg/dL (0.2-1.2); Calc. Creatinine Clearance 150 mL/min (70-130); Calcium 7.8 mg/dL (7.8-10.44); Carbon Dioxide 23 mmol/L (22-29); Cardiac Risk 4.8 (Less than 4.5); Chloride 103 mmol/L (98-107); Cholesterol 140 mg/dl (< 200 Desired); Globulin 2.7 g/dL (2.4-3.5); Glucose 76 mg/dL (70-105); HDL Cholesterol 29 mg/dL (>60 Neg Risk); LDL Cholesterol, Calculated 97 mg/dL; Potassium 3.5 mmol/L (3.5-5.1); Protein, Total 5.7 g/dL (6.0-8.3); Sodium 136 mmol/L (136-145); Triglycerides 71 mg/dL (Less than 150)
[2020-12-28] MEDS: Mometasone 100 MCG/Formoterol 5 MCG 120 PUFF INHALER INH SCH ×2 (07:27→19:58)
[2020-12-28] MEDS: Lisinopril 20 MG TAB PO SCH (08:01)
[2020-12-28] MEDS: Enoxaparin Sodium 40 MG/0.4 ML SYRINGE SC SCH (08:03)
[2020-12-28] MEDS: Famotidine 20 MG TAB PO SCH ×2 (08:03→20:55)
[2020-12-28] MEDS: FLUoxetine HCl 20 MG CAP PO SCH (08:04)
[2020-12-28] MEDS: Sodium Chloride 0.9% 1,000 ML IV SCH ×2 (09:55→10:19)
[2020-12-28] MEDS ORDERED: Regadenoson 0.4 MG/5 ML SYRINGE ONE (10:09)
[2020-12-28] MEDS: Ondansetron PF 4 MG/2 ML Vial IVP PRN (10:19)
[2020-12-28] MEDS ORDERED: Dextrose 50% Abboject 50 ML SYRINGE SLOW IVP PRN (19:10)
[2020-12-28] MEDS ORDERED: Dextrose 5% in Water 1,000 ML IV PRN (19:10)
[2020-12-28] MEDS: Diclofenac 1% 100 GM GEL TP SCH (20:56)
[2020-12-28] MEDS: Nicotine 14 MG PATCH TD SCH (20:57)
[2020-12-28] MEDS: Temazepam 15 MG CAP PO PRN (21:05)
[2020-12-28] MEDS: Ketorolac Tromethamine 30 MG/ML VIAL IVP PRN (21:05)
[2020-12-28] MEDS: methylPREDNISolone Sod Succ 40 MG VIAL IVP SCH (21:08)
[2020-12-29] MEDS: Sodium Chloride 0.9% 1,000 ML IV SCH ×2 (02:50→14:06)
[2020-12-29] MEDS: methylPREDNISolone Sod Succ 40 MG VIAL IVP SCH ×2 (05:36→14:06)
[2020-12-29 05:50] LABS: ALT (SGPT) 37 U/L (8-55); AST (SGOT) 37 U/L (5-34); Albumin 3.4 g/dL (3.5-5.0); Alkaline Phosphatase 87 U/L (40-110); Anion Gap 11 mmol/L (10-20); BUN (Urea Nitrogen) 8 mg/dL (9.8-20.1); Bilirubin, Total 0.7 mg/dL (0.2-1.2); Calc. Creatinine Clearance 145 mL/min (70-130); Calcium 8.3 mg/dL (7.8-10.44); Carbon Dioxide 25 mmol/L (22-29); Chloride 102 mmol/L (98-107); Globulin 3.1 g/dL (2.4-3.5); Glucose 164 mg/dL (70-105); Potassium 4.5 mmol/L (3.5-5.1); Protein, Total 6.5 g/dL (6.0-8.3); Sodium 133 mmol/L (136-145)
[2020-12-29] MEDS: HumaLOG 300 UNITS/3 ML VIAL SC PRN (06:24)
[2020-12-29] MEDS: Mometasone 100 MCG/Formoterol 5 MCG 120 PUFF INHALER INH SCH ×2 (07:33→20:19)
[2020-12-29] MEDS: Ondansetron PF 4 MG/2 ML Vial IVP PRN (08:22)
[2020-12-29] MEDS: Diclofenac 1% 100 GM GEL TP SCH ×4 (08:22→20:39)
[2020-12-29] MEDS: Enoxaparin Sodium 40 MG/0.4 ML SYRINGE SC SCH (08:22)
[2020-12-29] MEDS: FLUoxetine HCl 20 MG CAP PO SCH (08:22)
[2020-12-29] MEDS: Lisinopril 20 MG TAB PO SCH (08:22)
[2020-12-29] MEDS: Famotidine 20 MG TAB PO SCH ×2 (08:22→20:41)
[2020-12-29] MEDS ORDERED: methylPREDNISolone Sod Succ 40 MG VIAL ONE (12:47)
[2020-12-29] MEDS: Ketorolac Tromethamine 30 MG/ML VIAL IVP PRN (15:01)
[2020-12-29] MEDS ORDERED: guaiFENesin/DM ER PO SCH (15:30)
[2020-12-29] MEDS: Budesonide 0.25 MG/2 ML NEB INH SCH (20:17)
[2020-12-29] MEDS: Nicotine 14 MG PATCH TD SCH (20:38)
[2020-12-29] MEDS: guaiFENesin/DM ER PO SCH (20:41)
[2020-12-29] MEDS: Temazepam 15 MG CAP PO PRN (20:56)
[2020-12-29] MEDS ORDERED: HumaLOG 300 UNITS/3 ML VIAL SC PRN (21:05)
[2020-12-30] MEDS: methylPREDNISolone Sod Succ 40 MG VIAL IVP SCH ×4 (03:11→23:44)
[2020-12-30] MEDS: Sodium Chloride 0.9% 1,000 ML IV SCH (03:17)
[2020-12-30] MEDS: Ketorolac Tromethamine 30 MG/ML VIAL IVP PRN ×3 (04:38→21:52)
[2020-12-30] MEDS: Mometasone 100 MCG/Formoterol 5 MCG 120 PUFF INHALER INH SCH ×2 (07:07→20:00)
[2020-12-30] MEDS: Budesonide 0.25 MG/2 ML NEB INH SCH ×2 (07:08→19:59)
[2020-12-30] MEDS: Diclofenac 1% 100 GM GEL TP SCH ×4 (09:14→20:48)
[2020-12-30] MEDS: Enoxaparin Sodium 40 MG/0.4 ML SYRINGE SC SCH (09:25)
[2020-12-30] MEDS: Famotidine 20 MG TAB PO SCH ×2 (09:26→20:48)
[2020-12-30] MEDS: FLUoxetine HCl 20 MG CAP PO SCH (09:26)
[2020-12-30] MEDS: guaiFENesin/DM ER PO SCH ×2 (09:27→20:48)
[2020-12-30] MEDS: Lisinopril 20 MG TAB PO SCH (09:34)
[2020-12-30] MEDS: Azithromycin 500 MG in Sodium Chloride 0.9% 250 ML 250 ML IVPB SCH (12:26)
[2020-12-30 13:17] VITALS: BMI 37.3
[2020-12-30 13:41] LABS: ALT (SGPT) 36 U/L (8-55); AST (SGOT) 40 U/L (5-34); Albumin 3.6 g/dL (3.5-5.0); Alkaline Phosphatase 86 U/L (40-110); Anion Gap 13 mmol/L (10-20); BUN (Urea Nitrogen) 13 mg/dL (9.8-20.1); Bilirubin, Total 0.7 mg/dL (0.2-1.2); Calc. Creatinine Clearance 147 mL/min (70-130); Calcium 8.4 mg/dL (7.8-10.44); Carbon Dioxide 21 mmol/L (22-29); Chloride 103 mmol/L (98-107); Globulin 3.5 g/dL (2.4-3.5); Glucose 108 mg/dL (70-105); Potassium 5.3 mmol/L (3.5-5.1); Protein, Total 7.1 g/dL (6.0-8.3); Sodium 132 mmol/L (136-145)
[2020-12-30] MEDS: Lorazepam 0.5 MG TAB PO PRN (15:24)
[2020-12-30] MEDS ORDERED: Amlodipine 5 MG TAB PO SCH (18:00)
[2020-12-30] MEDS ORDERED: Lorazepam 2 MG/ML VIAL SLOW IVP SCH (20:00)
[2020-12-30] MEDS: Temazepam 15 MG CAP PO PRN (20:47)
[2020-12-30] MEDS: Nicotine 14 MG PATCH TD SCH (21:00)
[2020-12-31 05:37] LABS: Anion Gap 11 mmol/L (10-20); BUN (Urea Nitrogen) 12 mg/dL (9.8-20.1); Calc. Creatinine Clearance 150 mL/min (70-130); Calcium 8.6 mg/dL (7.8-10.44); Carbon Dioxide 27 mmol/L (22-29); Chloride 102 mmol/L (98-107); Glucose 143 mg/dL (70-105); Potassium 4.5 mmol/L (3.5-5.1); Sodium 135 mmol/L (136-145)
[2020-12-31] MEDS: methylPREDNISolone Sod Succ 40 MG VIAL IVP SCH ×4 (05:57→23:29)
[2020-12-31] MEDS: Mometasone 100 MCG/Formoterol 5 MCG 120 PUFF INHALER INH SCH ×2 (07:36→18:23)
[2020-12-31] MEDS: Budesonide 0.25 MG/2 ML NEB INH SCH ×2 (07:37→18:16)
[2020-12-31] MEDS: Diclofenac 1% 100 GM GEL TP SCH ×5 (09:14→19:59)
[2020-12-31] MEDS: Famotidine 20 MG TAB PO SCH ×2 (09:16→19:58)
[2020-12-31] MEDS: FLUoxetine HCl 20 MG CAP PO SCH (09:16)
[2020-12-31] MEDS: Lisinopril 20 MG TAB PO SCH (09:16)
[2020-12-31] MEDS: guaiFENesin/DM ER PO SCH ×2 (09:16→19:59)
[2020-12-31] MEDS: Enoxaparin Sodium 40 MG/0.4 ML SYRINGE SC SCH (09:17)
[2020-12-31] MEDS: Amlodipine 5 MG TAB PO SCH (09:17)
[2020-12-31] MEDS: Azithromycin 500 MG in Sodium Chloride 0.9% 250 ML 250 ML IVPB SCH (12:09)
[2020-12-31] MEDS: Ketorolac Tromethamine 30 MG/ML VIAL IVP PRN (12:15)
[2020-12-31] MEDS: Lorazepam 0.5 MG TAB PO PRN ×2 (13:30→21:11)
[2020-12-31] MEDS: Nicotine 14 MG PATCH TD SCH (19:57)
[2020-12-31] MEDS: Temazepam 15 MG CAP PO PRN (21:11)
[2021-01-01] MEDS: Ketorolac Tromethamine 30 MG/ML VIAL IVP PRN (04:08)
[2021-01-01] MEDS: methylPREDNISolone Sod Succ 40 MG VIAL IVP SCH ×4 (05:50→23:06)
[2021-01-01] MEDS: Famotidine 20 MG TAB PO SCH ×2 (07:50→20:56)
[2021-01-01] MEDS: Lorazepam 0.5 MG TAB PO PRN ×4 (07:50→23:06)
[2021-01-01] MEDS: Amlodipine 5 MG TAB PO SCH (07:51)
[2021-01-01] MEDS: Lisinopril 20 MG TAB PO SCH (07:51)
[2021-01-01] MEDS: FLUoxetine HCl 20 MG CAP PO SCH (07:51)
[2021-01-01] MEDS: guaiFENesin/DM ER PO SCH (07:51)
[2021-01-01] MEDS: Enoxaparin Sodium 40 MG/0.4 ML SYRINGE SC SCH (07:51)
[2021-01-01] MEDS: Diclofenac 1% 100 GM GEL TP SCH ×4 (07:52→20:59)
[2021-01-01] MEDS: Mometasone 100 MCG/Formoterol 5 MCG 120 PUFF INHALER INH SCH ×2 (08:02→18:25)
[2021-01-01] MEDS: Budesonide 0.25 MG/2 ML NEB INH SCH ×2 (08:03→18:23)
[2021-01-01] MEDS: hydrALAZINE 25 MG TAB PO SCH ×2 (10:46→20:56)
[2021-01-01] MEDS: Azithromycin 500 MG in Sodium Chloride 0.9% 250 ML 250 ML IVPB SCH (11:28)
[2021-01-01] MEDS: HumaLOG 300 UNITS/3 ML VIAL SC PRN (11:29)
[2021-01-01] MEDS ORDERED: Magnesium Sulfate 3 GM in Sodium Chloride 0.9% 100 ML IVPB SCH (16:30)
[2021-01-01] MEDS: Nicotine 14 MG PATCH TD SCH (20:55)
[2021-01-01] MEDS: Prazosin HCl 1 MG CAP PO SCH (20:56)
[2021-01-01] MEDS: guaiFENesin ER 600 MG TAB PO SCH (20:57)
[2021-01-01] MEDS: Temazepam 15 MG CAP PO PRN (23:06)
[2021-01-02] MEDS: Lorazepam 0.5 MG TAB PO PRN ×3 (04:21→23:23)
[2021-01-02] MEDS: Ketorolac Tromethamine 30 MG/ML VIAL IVP PRN (04:21)
[2021-01-02] MEDS: methylPREDNISolone Sod Succ 40 MG VIAL IVP SCH ×4 (07:22→23:23)
[2021-01-02] MEDS: Budesonide 0.25 MG/2 ML NEB INH SCH ×2 (07:39→19:52)
[2021-01-02] MEDS: Mometasone 100 MCG/Formoterol 5 MCG 120 PUFF INHALER INH SCH ×2 (07:40→19:53)
[2021-01-02] MEDS: guaiFENesin ER 600 MG TAB PO SCH ×2 (09:00→20:11)
[2021-01-02] MEDS: Enoxaparin Sodium 40 MG/0.4 ML SYRINGE SC SCH (09:00)
[2021-01-02] MEDS: Lisinopril 20 MG TAB PO SCH (09:00)
[2021-01-02] MEDS: Amlodipine 5 MG TAB PO SCH (09:02)
[2021-01-02] MEDS: Azithromycin 250 MG TAB PO SCH (09:02)
[2021-01-02] MEDS: FLUoxetine HCl 20 MG CAP PO SCH (09:02)
[2021-01-02] MEDS: Diclofenac 1% 100 GM GEL TP SCH ×4 (09:03→20:11)
[2021-01-02] MEDS: hydrALAZINE 25 MG TAB PO SCH ×2 (09:03→20:13)
[2021-01-02] MEDS: Famotidine 20 MG TAB PO SCH ×2 (09:04→20:12)
[2021-01-02] MEDS: HYDROcodone/Acetaminophen 5/325 mg Tablet PO PRN ×2 (13:31→20:12)
[2021-01-02] MEDS: HumaLOG 300 UNITS/3 ML VIAL SC PRN (17:07)
[2021-01-02] MEDS: Nicotine 14 MG PATCH TD SCH (20:10)
[2021-01-02] MEDS: Prazosin HCl 1 MG CAP PO SCH (20:15)
[2021-01-02] MEDS: Temazepam 15 MG CAP PO PRN (23:23)
[2021-01-03] MEDS: Lorazepam 0.5 MG TAB PO PRN ×4 (04:03→23:30)
[2021-01-03] MEDS: HYDROcodone/Acetaminophen 5/325 mg Tablet PO PRN ×4 (04:03→18:04)
[2021-01-03] MEDS: methylPREDNISolone Sod Succ 40 MG VIAL IVP SCH ×4 (06:05→23:31)
[2021-01-03] MEDS: Budesonide 0.25 MG/2 ML NEB INH SCH ×2 (06:54→18:45)
[2021-01-03] MEDS: Mometasone 100 MCG/Formoterol 5 MCG 120 PUFF INHALER INH SCH ×2 (06:57→18:50)
[2021-01-03] MEDS ORDERED: hydrALAZINE 20 MG/ML VIAL SLOW IVP PRN (07:32)
[2021-01-03] MEDS: Azithromycin 250 MG TAB PO SCH (08:36)
[2021-01-03] MEDS: Famotidine 20 MG TAB PO SCH ×2 (08:36→19:51)
[2021-01-03] MEDS: guaiFENesin ER 600 MG TAB PO SCH ×2 (08:36→19:50)
[2021-01-03] MEDS: FLUoxetine HCl 20 MG CAP PO SCH (08:37)
[2021-01-03] MEDS: hydrALAZINE 25 MG TAB PO SCH ×3 (08:37→19:51)
[2021-01-03] MEDS: Lisinopril 20 MG TAB PO SCH (08:38)
[2021-01-03] MEDS: Amlodipine 5 MG TAB PO SCH (08:38)
[2021-01-03] MEDS: Enoxaparin Sodium 40 MG/0.4 ML SYRINGE SC SCH (08:43)
[2021-01-03] MEDS: Diclofenac 1% 100 GM GEL TP SCH ×3 (08:43→16:16)
[2021-01-03] MEDS: Nicotine 14 MG PATCH TD SCH (19:51)
[2021-01-03] MEDS: Prazosin HCl 1 MG CAP PO SCH (19:51)
[2021-01-03] MEDS: Temazepam 15 MG CAP PO PRN (23:30)
[2021-01-04] MEDS: HYDROcodone/Acetaminophen 5/325 mg Tablet PO PRN ×3 (01:02→10:08)
[2021-01-04] MEDS: methylPREDNISolone Sod Succ 40 MG VIAL IVP SCH ×2 (05:05→12:32)
[2021-01-04] MEDS: Budesonide 0.25 MG/2 ML NEB INH SCH (06:27)
[2021-01-04] MEDS: Mometasone 100 MCG/Formoterol 5 MCG 120 PUFF INHALER INH SCH (06:29)
[2021-01-04] MEDS ORDERED: predniSONE 20 MG TAB PO SCH (08:00)
[2021-01-04] MEDS: Lorazepam 0.5 MG TAB PO PRN (08:50)
[2021-01-04] MEDS: Famotidine 20 MG TAB PO SCH (08:51)
[2021-01-04] MEDS: Amlodipine 5 MG TAB PO SCH (08:51)
[2021-01-04] MEDS: Enoxaparin Sodium 40 MG/0.4 ML SYRINGE SC SCH (08:51)
[2021-01-04] MEDS: Lisinopril 20 MG TAB PO SCH (08:52)
[2021-01-04] MEDS: guaiFENesin ER 600 MG TAB PO SCH (08:52)
[2021-01-04] MEDS: FLUoxetine HCl 20 MG CAP PO SCH (08:52)
[2021-01-04] MEDS: hydrALAZINE 25 MG TAB PO SCH (08:52)
[2021-01-04 12:42] VITALS: BP 130/77; TEMP 98
== END 2021-01-04 13:32 | disposition home or self-care (01) | DRG 189 ==
LOC: ERS 14:09 → 2SW 18:02 → OBSVTOIN 12-28 17:07
PROVIDERS: ADMIT Family Medicine; ATTEND Internal Medicine
DX: J96.01 Acute respiratory failure with hypoxia (principal); J44.1 Chronic obstructive pulmonary disease with (acute) exacerbation; Z87.440 Personal history of urinary (tract) infections; I27.20 Pulmonary hypertension, unspecified; Z20.822 Contact with and (suspected) exposure to COVID-19; F41.9 Anxiety disorder, unspecified; K04.1 Necrosis of pulp; K76.0 Fatty (change of) liver, not elsewhere classified; F17.210 Nicotine dependence, cigarettes, uncomplicated; R19.7 Diarrhea, unspecified; I08.1 Rheumatic disorders of both mitral and tricuspid valves; E78.5 Hyperlipidemia, unspecified; I10 Essential (primary) hypertension; I73.9 Peripheral vascular disease, unspecified; G47.00 Insomnia, unspecified; E87.5 Hyperkalemia; F43.10 Post-traumatic stress disorder, unspecified; R07.89 Other chest pain; E86.0 Dehydration; Z98.51 Tubal ligation status; Z79.899 Other long term (current) drug therapy
CPT/HCPCS: 36415; 36416; 70486; 71045; 71275; 76705; 78452; 80048; 80053; 80061; 80176; 81001; 82274; 83690; 83880; 84443; 84484; 85025; 85379; 87045; 87046; 87328; 87329; 87427; 87449; 87633; 87635; 87798; 93005; 93017; 93306; 94640; 94760; 96372; 96374; A9500; G0378; J0456; J1650; J1815; J1885; J2060; J2270; J2405; J2785; J2920; J3475; J3490; J7050; J7620; J7626; Q9967; U0003; U0005

== ENCOUNTER 2021-09-10 01:32 | Inpatient (IN) | payer MEDICARE, MEDICAID ==
[2021-09-10] MEDS ORDERED: Acetaminophen 650 MG Suppository PR PRN (04:27)
[2021-09-10] MEDS ORDERED: Ondansetron ODT 4 MG TAB PO PRN (04:27)
[2021-09-10] MEDS ORDERED: Ondansetron PF 4 MG/2 ML Vial IVP PRN (04:27)
[2021-09-10] MEDS ORDERED: Acetaminophen 325 MG TAB PO PRN (04:27)
[2021-09-10 04:43] VITALS: BMI 39.1
[2021-09-10] MEDS ORDERED: Furosemide 40 MG/4 ML VIAL SLOW IVP SCH (04:45)
[2021-09-10] MEDS ORDERED: predniSONE 20 MG TAB PO SCH (04:45)
[2021-09-10] MEDS: Enoxaparin Sodium 40 MG/0.4 ML SYRINGE SC SCH (09:44)
[2021-09-10] MEDS ORDERED: Lorazepam 0.5 MG TAB PO SCH (10:45)
[2021-09-10] MEDS ORDERED: Melatonin 3 MG TAB PO PRN (20:56)
[2021-09-10] MEDS ORDERED: diphenhydrAMINE 50 MG CAP PO SCH (21:15)
[2021-09-10] MEDS: Temazepam 15 MG CAP PO PRN (21:32)
[2021-09-11] MEDS: Azithromycin 500 MG in Sodium Chloride 0.9% 250 ML 250 ML IVPB SCH (00:51)
[2021-09-11 05:32] LABS: #Lymphocytes 2.1 thou/uL (1.20-3.40); #Monocytes 1.1 thou/uL (0.11-0.59); #Neutrophils 9.4 thou/uL (1.40-6.50); %Basophils 0.2 % (0.0-1.0); %Eosinophils 0.3 % (0.0-10.0); %Lymphocytes 16.4 % (21.0-51.0); %Monocytes 8.4 % (0.0-10.0); %Neutrophils 74.7 % (42.0-75.0); Hemoglobin 16.4 g/dL (12.0-16.0); Mean Corpuscular HGB CONC 34.4 g/dL (32.0-36.0); Mean Corpuscular Hemoglobin 37.4 pg (27.0-31.0); Mean Platelet Volume 6.7 fL (7.4-10.4); Platelet Count 187 thou/uL (130-400); RBC Distribution Width 13.3 % (11.5-14.5); Red Blood Cell (RBC) Count 4.37 mill/uL (4.20-5.40); White Blood Cell (WBC) Count 12.6 thou/uL (4.8-10.8)
[2021-09-11 06:03] LABS: Anion Gap 14 mmol/L (10-20); BUN (Urea Nitrogen) 15 mg/dL (9.8-20.1); Calc. Creatinine Clearance 142 mL/min (70-130); Calcium 8.6 mg/dL (7.8-10.44); Carbon Dioxide 28 mmol/L (22-29); Chloride 96 mmol/L (98-107); Glucose 153 mg/dL (70-105); Potassium 4.6 mmol/L (3.5-5.1); Sodium 133 mmol/L (136-145)
[2021-09-11] MEDS: Lisinopril 20 MG TAB PO SCH (08:54)
[2021-09-11] MEDS: Enoxaparin Sodium 40 MG/0.4 ML SYRINGE SC SCH (08:54)
[2021-09-11] MEDS: FLUoxetine HCl 20 MG CAP PO SCH (08:54)
[2021-09-11] MEDS: methylPREDNISolone Sod Succ 40 MG VIAL IVP SCH (08:55)
[2021-09-11] MEDS ORDERED: predniSONE 20 MG TAB PO SCH (09:00)
[2021-09-11] MEDS ORDERED: Non-Formulary Item 1 EACH (Lisinopril [Lisinopril] 40 MG Tablet) PO SCH (09:00)
[2021-09-11] MEDS ORDERED: Non-Formulary Item 1 EACH (Fluoxetine Hcl [Prozac] 40 MG Capsule) PO SCH (09:00)
[2021-09-11] MEDS: Lorazepam 0.5 MG TAB PO PRN ×2 (11:16→19:54)
[2021-09-11] MEDS: Temazepam 15 MG CAP PO PRN (19:54)
[2021-09-12] MEDS: Azithromycin 500 MG in Sodium Chloride 0.9% 250 ML 250 ML IVPB SCH (02:17)
[2021-09-12 05:35] LABS: #Eosinphils 0.1 thou/uL (0.0-0.7); #Lymphocytes 2.2 thou/uL (1.20-3.40); #Monocytes 0.9 thou/uL (0.11-0.59); #Neutrophils 8.5 thou/uL (1.40-6.50); %Basophils 0.1 % (0.0-1.0); %Eosinophils 0.4 % (0.0-10.0); %Lymphocytes 18.6 % (21.0-51.0); %Monocytes 7.6 % (0.0-10.0); %Neutrophils 73.2 % (42.0-75.0); Hemoglobin 16.7 g/dL (12.0-16.0); Mean Corpuscular HGB CONC 33.5 g/dL (32.0-36.0); Mean Corpuscular Hemoglobin 36.9 pg (27.0-31.0); Mean Platelet Volume 6.6 fL (7.4-10.4); Platelet Count 212 thou/uL (130-400); Red Blood Cell (RBC) Count 4.54 mill/uL (4.20-5.40); White Blood Cell (WBC) Count 11.7 thou/uL (4.8-10.8)
[2021-09-12 05:57] LABS: ALT (SGPT) 35 U/L (8-55); AST (SGOT) 34 U/L (5-34); Albumin 3.2 g/dL (3.5-5.0); Alkaline Phosphatase 83 U/L (40-110); Anion Gap 11 mmol/L (10-20); BUN (Urea Nitrogen) 13 mg/dL (9.8-20.1); Bilirubin, Total 0.6 mg/dL (0.2-1.2); Calc. Creatinine Clearance 154 mL/min (70-130); Calcium 8.7 mg/dL (7.8-10.44); Carbon Dioxide 28 mmol/L (22-29); Chloride 97 mmol/L (98-107); Globulin 3.5 g/dL (2.4-3.5); Glucose 85 mg/dL (70-105); Potassium 4.5 mmol/L (3.5-5.1); Protein, Total 6.7 g/dL (6.0-8.3); Sodium 131 mmol/L (136-145)
[2021-09-12] MEDS: Enoxaparin Sodium 40 MG/0.4 ML SYRINGE SC SCH (08:59)
[2021-09-12] MEDS: FLUoxetine HCl 20 MG CAP PO SCH (08:59)
[2021-09-12] MEDS: Lisinopril 20 MG TAB PO SCH (08:59)
[2021-09-12] MEDS: methylPREDNISolone Sod Succ 40 MG VIAL IVP SCH (09:00)
[2021-09-12] MEDS: Lorazepam 0.5 MG TAB PO PRN (11:14)
[2021-09-12] MEDS: Temazepam 15 MG CAP PO PRN (20:35)
[2021-09-13] MEDS: Azithromycin 500 MG in Sodium Chloride 0.9% 250 ML 250 ML IVPB SCH (01:48)
[2021-09-13] MEDS: Lorazepam 0.5 MG TAB PO PRN ×3 (01:48→21:13)
[2021-09-13 06:00] LABS: #Eosinphils 0.1 thou/uL (0.0-0.7); #Lymphocytes 2.2 thou/uL (1.20-3.40); #Neutrophils 6.7 thou/uL (1.40-6.50); %Basophils 0.4 % (0.0-1.0); %Eosinophils 0.6 % (0.0-10.0); %Lymphocytes 21.6 % (21.0-51.0); %Monocytes 9.9 % (0.0-10.0); %Neutrophils 67.5 % (42.0-75.0); Hemoglobin 16.8 g/dL (12.0-16.0); Mean Corpuscular HGB CONC 33.3 g/dL (32.0-36.0); Mean Corpuscular Hemoglobin 36.3 pg (27.0-31.0); Mean Platelet Volume 6.4 fL (7.4-10.4); Platelet Count 206 thou/uL (130-400); RBC Distribution Width 12.8 % (11.5-14.5); Red Blood Cell (RBC) Count 4.63 mill/uL (4.20-5.40); White Blood Cell (WBC) Count 9.9 thou/uL (4.8-10.8)
[2021-09-13 06:27] LABS: ALT (SGPT) 41 U/L (8-55); AST (SGOT) 32 U/L (5-34); Albumin 3.3 g/dL (3.5-5.0); Alkaline Phosphatase 77 U/L (40-110); Anion Gap 12 mmol/L (10-20); BUN (Urea Nitrogen) 13 mg/dL (9.8-20.1); Bilirubin, Total 0.8 mg/dL (0.2-1.2); Calc. Creatinine Clearance 149 mL/min (70-130); Calcium 8.8 mg/dL (7.8-10.44); Carbon Dioxide 29 mmol/L (22-29); Chloride 96 mmol/L (98-107); Globulin 3.5 g/dL (2.4-3.5); Glucose 81 mg/dL (70-105); Potassium 4.2 mmol/L (3.5-5.1); Protein, Total 6.8 g/dL (6.0-8.3); Sodium 133 mmol/L (136-145)
[2021-09-13] MEDS ORDERED: FLU VACC QS2021-22(6MOS UP)/PF 60 MCG/0.5 ML SYRINGE IM ONE (09:00)
[2021-09-13] MEDS: Amlodipine 5 MG TAB PO SCH (09:10)
[2021-09-13] MEDS: FLUoxetine HCl 20 MG CAP PO SCH (09:10)
[2021-09-13] MEDS: Aspirin 81 mg Enteric Coated Tablet PO SCH (09:10)
[2021-09-13] MEDS: Lisinopril 20 MG TAB PO SCH (09:10)
[2021-09-13] MEDS: methylPREDNISolone Sod Succ 40 MG VIAL IVP SCH (09:10)
[2021-09-13] MEDS: Enoxaparin Sodium 40 MG/0.4 ML SYRINGE SC SCH (09:10)
[2021-09-13] MEDS: Temazepam 15 MG CAP PO PRN (21:13)
[2021-09-14] MEDS ORDERED: hydrALAZINE 20 MG/ML VIAL SLOW IVP PRN (03:38)
[2021-09-14 05:30] LABS: #Eosinphils 0.1 thou/uL (0.0-0.7); #Lymphocytes 2.2 thou/uL (1.20-3.40); #Monocytes 0.8 thou/uL (0.11-0.59); #Neutrophils 8.8 thou/uL (1.40-6.50); %Basophils 0.2 % (0.0-1.0); %Eosinophils 0.7 % (0.0-10.0); %Lymphocytes 18.4 % (21.0-51.0); %Neutrophils 73.8 % (42.0-75.0); Hemoglobin 17.7 g/dL (12.0-16.0); Mean Corpuscular Hemoglobin 36.8 pg (27.0-31.0); Mean Platelet Volume 7.2 fL (7.4-10.4); Platelet Count 176 thou/uL (130-400); Red Blood Cell (RBC) Count 4.83 mill/uL (4.20-5.40)
[2021-09-14] MEDS ORDERED: Azithromycin 250 MG TAB PO SCH (06:00)
[2021-09-14 06:01] LABS: ALT (SGPT) 45 U/L (8-55); AST (SGOT) 41 U/L (5-34); Albumin 3.3 g/dL (3.5-5.0); Alkaline Phosphatase 104 U/L (40-110); Anion Gap 14 mmol/L (10-20); BUN (Urea Nitrogen) 18 mg/dL (9.8-20.1); Bilirubin, Total 0.6 mg/dL (0.2-1.2); Calc. Creatinine Clearance 134 mL/min (70-130); Calcium 9.2 mg/dL (7.8-10.44); Carbon Dioxide 26 mmol/L (22-29); Chloride 96 mmol/L (98-107); Glucose 95 mg/dL (70-105); Potassium 5.4 mmol/L (3.5-5.1); Protein, Total 7.3 g/dL (6.0-8.3); Sodium 131 mmol/L (136-145)
[2021-09-14] MEDS ORDERED: Mag-Al 1200 mg/1200 mg/30 ML UDCUP PO PRN (07:47)
[2021-09-14] MEDS: Lorazepam 0.5 MG TAB PO PRN ×2 (09:04→20:37)
[2021-09-14] MEDS: FLUoxetine HCl 20 MG CAP PO SCH (09:04)
[2021-09-14] MEDS: methylPREDNISolone Sod Succ 40 MG VIAL IVP SCH (09:04)
[2021-09-14] MEDS: Aspirin 81 mg Enteric Coated Tablet PO SCH (09:04)
[2021-09-14] MEDS: Lisinopril 20 MG TAB PO SCH (09:04)
[2021-09-14] MEDS: Amlodipine 5 MG TAB PO SCH (09:04)
[2021-09-14] MEDS: Famotidine 20 MG TAB PO SCH ×2 (09:04→20:37)
[2021-09-14] MEDS: Enoxaparin Sodium 40 MG/0.4 ML SYRINGE SC SCH (09:05)
[2021-09-14] MEDS: Temazepam 15 MG CAP PO PRN (20:37)
[2021-09-15 08:14] VITALS: TEMP 98
[2021-09-15] MEDS: Lorazepam 0.5 MG TAB PO PRN (09:04)
[2021-09-15] MEDS: Amlodipine 5 MG TAB PO SCH (09:05)
[2021-09-15] MEDS: Famotidine 20 MG TAB PO SCH (09:05)
[2021-09-15] MEDS: FLUoxetine HCl 20 MG CAP PO SCH (09:05)
[2021-09-15] MEDS: Lisinopril 20 MG TAB PO SCH (09:05)
[2021-09-15] MEDS: Enoxaparin Sodium 40 MG/0.4 ML SYRINGE SC SCH (09:06)
[2021-09-15] MEDS: methylPREDNISolone Sod Succ 40 MG VIAL IVP SCH (09:06)
[2021-09-15 09:11] VITALS: BP 138/74
[2021-09-15] MEDS: Aspirin 81 mg Enteric Coated Tablet PO SCH (09:11)
== END 2021-09-15 11:40 | disposition home or self-care (01) | DRG 189 ==
LOC: 2NO 01:32
PROVIDERS: ADMIT Student in an Organized Health Care Education/Training Program; ATTEND Family Medicine
DX: J96.01 Acute respiratory failure with hypoxia (principal); Z28.21 Immunization not carried out because of patient refusal; J43.9 Emphysema, unspecified; I73.9 Peripheral vascular disease, unspecified; I10 Essential (primary) hypertension; F41.9 Anxiety disorder, unspecified; D75.1 Secondary polycythemia; K29.70 Gastritis, unspecified, without bleeding; F17.210 Nicotine dependence, cigarettes, uncomplicated; G47.00 Insomnia, unspecified; Z79.899 Other long term (current) drug therapy; Z79.51 Long term (current) use of inhaled steroids; Z98.51 Tubal ligation status
CPT/HCPCS: 36415; 71045; 80048; 80053; 85025; 94640; J0360; J0456; J1650; J1940; J2920; J7050; J7512; J7620

== ENCOUNTER 2022-07-17 19:40 | Emergency (ER) | payer MEDICARE, MEDICAID ==
[2022-07-17] MEDS ORDERED: methylPREDNISolone Sod Succ/PF 125 MG/2 ML VIAL ONE (20:30)
[2022-07-17 21:16] LABS: Hemoglobin 18.6 g/dL (12.0-16.0); Mean Corpuscular Hemoglobin 35.2 pg (27.0-31.0); Platelet Count 218 10x3/uL (130-400); RBC Distribution Width 15.3 % (11.5-14.5); Red Blood Cell (RBC) Count 5.27 mill/uL (4.20-5.40); White Blood Cell (WBC) Count 7.6 10x3/uL (4.8-10.8)
[2022-07-17 21:32] LABS: Anisocytosis SLIGHT = 6-15 cells (100X) (0-5/hpf); Eosinophils 1 % (0-10); Lymphocytes 36 % (21-51); MDiff Complete? YES; Macrocytosis MODERATE=16-30 cells (100X) (0-5/hpf); Metamyelocyte 1 % (0-0); Monocytes 5 % (0-10); Myelocyte 1 % (0-0); Neutrophil 52 % (42-75); Platelet Morphology Comment Appears Adequate; Reactive Lymphocytes 4 % (0-10)
[2022-07-17 21:34] LABS: Acetaminophen Less than 10.0 mcg/mL (10.0-30.0); Alcohol 225 mg/dL (Less than 10); Salicylate Less than 8.0 mg/dL (15.0-30.0)
[2022-07-17 21:43] LABS: ALT (SGPT) 28 U/L (8-55); AST (SGOT) 32 U/L (5-34); Albumin 4.1 g/dL (3.4-4.8); Alkaline Phosphatase 102 U/L (40-110); Anion Gap 16 mmol/L (10-20); BUN (Urea Nitrogen) 6 mg/dL (9.8-20.1); Bilirubin, Total 0.5 mg/dL (0.2-1.2); Calc. Creatinine Clearance 0 mL/min (70-130); Calcium 9.3 mg/dL (7.8-10.44); Carbon Dioxide 28 mmol/L (23-31); Chloride 103 mmol/L (98-107); Estimated GFR 85; Globulin 3.8 g/dL (2.4-3.5); Glucose 90 mg/dL (80-115); Potassium 4.5 mmol/L (3.5-5.1); Protein, Total 7.9 g/dL (5.8-8.1); Sodium 142 mmol/L (136-145)
== END 2022-07-18 00:20 | disposition home or self-care (01) ==
LOC: ERS 19:40
DX: J44.1 Chronic obstructive pulmonary disease with (acute) exacerbation (principal); F10.129 Alcohol abuse with intoxication, unspecified; I10 Essential (primary) hypertension; F17.210 Nicotine dependence, cigarettes, uncomplicated; Z79.899 Other long term (current) drug therapy
CPT/HCPCS: 36415; 71045; 80053; 80307; 83880; 84484; 85025; 93005; 94640; J2930; J7620

== ENCOUNTER 2023-07-24 07:38 | Day surgery (SDC) | payer MEDICARE, MEDICAID ==
[2023-07-21 14:28] VITALS: BMI 31.7
[2023-07-24] MEDS ORDERED: PROPOFOL 40 ML ONE (09:42)
[2023-07-24] MEDS ORDERED: Lidocaine 2% PF 5 ML VIAL ONE (09:42)
[2023-07-24] MEDS ORDERED: PROPOFOL 20 ML ONE (09:49)
[2023-07-24] MEDS ORDERED: Glycopyrrolate 0.2 MG/ML 5 ML SYRINGE ONE (10:06)
[2023-07-24] MEDS ORDERED: Lidocaine 1% PF 5 ML VIAL ONE (10:06)
== END 2023-07-24 10:57 | disposition home or self-care (01) ==
LOC: SDC 07:38
PROVIDERS: ATTEND Internal Medicine Gastroenterology
PROC: 0DB68ZX Excision of Stomach, Via Natural or Artificial Opening Endoscopic, Diagnostic (ICD-10-PCS; principal; 2023-07-24)
PROC: 0DBH8ZX Excision of Cecum, Via Natural or Artificial Opening Endoscopic, Diagnostic (ICD-10-PCS; 2023-07-24)
DX: Z12.11 Encounter for screening for malignant neoplasm of colon (principal); D12.0 Benign neoplasm of cecum; K57.30 Diverticulosis of large intestine without perforation or abscess without bleeding; K29.70 Gastritis, unspecified, without bleeding; K21.9 Gastro-esophageal reflux disease without esophagitis; J44.9 Chronic obstructive pulmonary disease, unspecified; I10 Essential (primary) hypertension; F32.A Depression, unspecified; E78.00 Pure hypercholesterolemia, unspecified; F41.9 Anxiety disorder, unspecified; F15.90 Other stimulant use, unspecified, uncomplicated; K31.89 Other diseases of stomach and duodenum; F10.90 Alcohol use, unspecified, uncomplicated; R63.4 Abnormal weight loss; Z68.31 Body mass index [BMI] 31.0-31.9, adult; Z99.81 Dependence on supplemental oxygen; Z79.899 Other long term (current) drug therapy; F17.210 Nicotine dependence, cigarettes, uncomplicated
CPT/HCPCS: 88305; 88342; J2001; J2704

== ENCOUNTER 2023-07-31 10:34 | Outpatient (CLI) | payer MEDICARE, MEDICAID | END 2023-07-31 10:35 | disposition home or self-care (01) | LOC: BICCT 10:34 | PROVIDERS: ATTEND Registered Nurse | DX: Z12.31 Encounter for screening mammogram for malignant neoplasm of breast (principal); Z12.2 Encounter for screening for malignant neoplasm of respiratory organs; F17.218 Nicotine dependence, cigarettes, with other nicotine-induced disorders; I25.10 Atherosclerotic heart disease of native coronary artery without angina pectoris | CPT/HCPCS: 71271; 77063; 77067 ==

== ENCOUNTER 2024-10-13 00:22 | Emergency (ER) | payer OTHER ==
[2024-10-13] MEDS ORDERED: Ipratropium/Albuterol 3 ML NEB ONE (01:38)
[2024-10-13] MEDS ORDERED: methylPREDNISolone Sod Succ/PF 125 MG/2 ML VIAL ONE (01:38)
[2024-10-13 02:10] LABS: #Basophils 0.06 10x3/uL (0.0-0.2); %Basophils 0.9 % (0.0-1.0); %Eosinophils 1.5 % (0.0-10.0); %Lymphocytes 35.3 % (21.0-51.0); %Monocytes 10.4 % (0.0-10.0); %Neutrophils 51.6 % (42.0-75.0); Hematocrit 40.2 % (36.0-47.0); Hemoglobin 13.7 g/dL (12.0-16.0); Mean Corpuscular HGB CONC 34.1 g/dL (32.0-36.0); Mean Corpuscular Hemoglobin 31.7 pg (27.0-31.0); Mean Corpuscular Volume 93.1 fL (78.0-98.0); Platelet Count 212 10x3/uL (130-400); RBC Distribution Width 13.9 % (11.5-14.5); Red Blood Cell (RBC) Count 4.32 mill/uL (4.20-5.40)
[2024-10-13 02:16] LABS: Alcohol 204.5 mg/dL (Less than 10)
[2024-10-13 02:19] LABS: ALT (SGPT) 34 U/L (Less than 34); AST (SGOT) 55 U/L (11-34); Albumin 3.8 g/dL (3.1-4.5); Alkaline Phosphatase 194 U/L (40-110); Anion Gap 15 mmol/L (10-20); BUN (Urea Nitrogen) 10 mg/dL (9.8-20.1); Bilirubin, Total 0.5 mg/dL (0.3-1.2); Calc. Creatinine Clearance 0 mL/min (70-130); Calcium 8.5 mg/dL (7.8-10.44); Carbon Dioxide 25 mmol/L (23-31); Chloride 100 mmol/L (98-107); Estimated GFR 98; Globulin 3.6 g/dL (2.4-3.5); Glucose 115 mg/dL (80-115); Potassium 3.8 mmol/L (3.5-5.1); Protein, Total 7.4 g/dL (5.8-8.1); Sodium 136 mmol/L (136-145)
[2024-10-13 02:24] LABS: Troponin I Less than 0.010 ng/mL (< 0.028)
[2024-10-13 04:44] LABS: Bacteria/HPF None Seen HPF (None Seen); Bilirubin Negative (Negative); Blood, Urine Negative (Negative); CAUTI Indications for Culture Alt mental st,lethar; Clarity Clear (Clear); Glucose, Urine (Dipstick) Normal (Negative); Ketone, Urine Negative (Negative); Leukocyte Negative Leu/uL (Negative); Nitrite Negative (Negative); Protein, Urine (Dipstick) Negative (Neg-Trace); RBC/HPF 0-3 HPF (0-3); Specific Gravity, Urine 1.005 (1.002-1.036); Squamous Epithelial 0-3 HPF (0-3); Urobilinogen Normal mg/dL (Less than 2); WBC/HPF None Seen HPF (0-3); pH, Urine 6.5 (5.0-9.0)
[2024-10-13 05:26] LABS: Urine Culture Reflex No No
== END 2024-10-13 06:00 | disposition home or self-care (01) ==
LOC: ERS 00:22
DX: F10.129 Alcohol abuse with intoxication, unspecified (principal); I10 Essential (primary) hypertension; J44.9 Chronic obstructive pulmonary disease, unspecified; E78.5 Hyperlipidemia, unspecified; F17.210 Nicotine dependence, cigarettes, uncomplicated
CPT/HCPCS: 70450; 71045; 80053; 80307; 81001; 83880; 84484; 85025; 93005; J2919; 96374; J7620